=== PATIENT | female | born 1960 | race Two or more races ===

== ENCOUNTER 2024-09-21 16:26 | Inpatient (IN) | payer MEDICARE, OTHER ==
[~2024-09-21] VITALS: Ht 162.6 cm; Wt 82.2 kg
[~2024-09-21 16:26] MED LIST: BACL10TA PO; DULO60CA41 PO; FLUO-381 TOP; FLUT50SP31; FURO1TAB31 PO; HYDR200T36 PA; LEFL20TA PO; LEVO88TA4 PO; MACI1TAB2 PO; MONT-8 PO; OMEP20TA PO; PERCOT PO; SILD50TA PO
[2024-09-21] MEDS: methylPREDNISolone SOD SUCC 125 MG/2 ML VL IV ONE (17:00)
--- NOTE | 2024-09-21 17:03 | ED.PDOC ---
SOB-HPI HPI Comments 64y F who presents to the ED for chief complaint of shortness of breath. Pt states she has bee having shortness of breath with chest pain associated pain upon exertion since earlier this afternoon at approx 2 PM. Pt states she was recently diagnosed with pneumonia and states she was placed on antibiotics. Pt now in the ED, has noted 02 sat of 91% on room air and with noted BP of 95/49 and 70/40 on repeat with all other vitals in normal range. Pt otherwise denies fever, cough, chills, nausea, vomiting, diarrhea, headache or dizziness. Pt denies any other symptoms at this time. Chief Complaint: Shortness of Breath Time Seen by MD: 16:57 Reviewed notes: Nurses Notes, Medications Information Source: Patient Mode of Arrival: Wheelchair Brought in by: self Severity: Moderate Timing: Hours Duration: Since onset Context: At Rest, With Light Exertion PE Risk Factors: None History of: None Prehospital treatment: None Modifying Factors: Exertion Associated Signs and Symptoms: None Quality: Pressure Past Medical History PAST MEDICAL HISTORY: Thyroid Past Medical History (Other): pulmonary HTN Surgical History: Hysterectomy Surgical History (Other): gastric bypass, R knee surgery [employer] History: Denies all [employer] Hx Family History Family History: Unknown Social History Smoker: Cigarettes Alcohol: Denies ETOH Use Drugs: Denies Drug Use Lives In: Home Constitutional: denies: chills, diaphoresis, fatigue, fever, malaise, sweats, weakness, others EENTM: denies: blurred vision, double vision, ear bleeding, ear discharge, ear drainage, ear pain, ear ringing, eye pain, eye redness, hearing loss, mouth pain, mouth swelling, nasal discharge, nose bleeding, nose congestion, nose pain, photophobia, tearing, throat pain, throat swelling, voice changes, others Respiratory: reports: shortness of breath, SOB with excertion; denies: cough, hemoptysis, orthopnea, SOB at rest, stridor, wheezing, others Cardiovascular: reports: chest pain; denies: dizzy spells, diaphoresis, Dyspnea on exertion, edema, irregular heart beat, left arm pain, lightheadedness, palpitations, PND, syncope, others Gastrointestinal: denies: abdomen distended, abdominal pain, blood streaked bowels, constipated, diarrhea, dysphagia, difficulty swallowing, hematemesis, melena, nausea, poor appetite, poor fluid intake, rectal bleeding, rectal pain, vomiting, others Genitourinary: denies: abnormal vagina bleeding, burning, dyspareunia, dysuria, flank pain, frequency, hematuria, incontinence, pain, , vagina discharge, urgency, others Neurological: denies: dizziness, fainting, headache, left sided numbness, left sided weakness, numbness, paresthesia, pre-existing deficit, right sided numbness, right sided weakness, seizure, speech problems, tingling, tremors, weakness, others Musculoskeletal: denies: back pain, gout, joint pain, joint swelling, muscle pain, muscle stiffness, neck pain, others Integumetry: denies: bruises, change in color, change in hair/nails, dryness, laceration, lesions, lumps, rash, wounds, others Allergic/Immunocompromised: denies: Difficulty Healing, Frequent Infections, Hives, Itching, others Hematologic/Lymphatic: denies: anemia, blood clots, easy bleeding, easy bruising, swollen glands, others Endocrine: denies: excessive hunger, excessive sweating, excessive thirst, excessive urination, flushing, intolerance to cold, intolerance to heat, unexplained weight gain, unexplained weight loss, others Psychiatric: denies: anxiety, bipolar disorder, depression, hopeless, panic disorder, schizophrenia, sleepless, suicidal, others All Other Systems: Reviewed and Negative Physical Exam General Appearance: Moderate Distress HEENT: Normal ENT Inspection, Pharynx Normal, TMs Normal Neck: Full Range of Motion, Non-Tender, Normal, Normal Inspection Respiratory: Chest Non-Tender, Lungs Clear, No Accessory Muscle Use, No Respiratory Distress, Normal Breath Sounds Cardiovascular: No Edema, No JVD, No Murmur, No Gallop, Normal Peripheral Pulses, Regular Rate/Rhythm Breast Exam: Deferred Gastrointestinal: No Organomegaly, Non Tender, No Pulsatile Mass, Normal Bowel Sounds, Soft Genitalia: Deferred Pelvic: Deferred Rectal: Deferred Extremities: No calf tenderness, Normal capillary refill, Normal inspection, Normal range of motion, Non-tender, No pedal edema Musculoskeletal : Apperance: Normal Neurologic: Alert, tool liaison II-XII nml as Tested, No Motor Deficits, Normal Affect, Normal Mood, No Sensory Deficits Cerebellar Function: Normal Reflexes: Normal Skin: Dry, Normal Color, Warm Lymphatic: No Adenopathy Was a procedure done? Was a procedure done?: No Differential Dx Differential Diagnosis: Bronchitis, CHF, COPD, Pneumonia, Pulmonary Embolism, R espiratory Distress, Pharyngitis, URI Comments COVID, Influenza A and B, X-Ray, Labs, Meds, VS Vital Signs Date Time Temp Pulse Resp B/P (MAP) Pulse Ox O2 Delivery O2 Flow Rate FiO2 09/21/24 19:24 80 09/21/24 19:23 99.5 89 22 123/55 (77) 91 99.5 09/21/24 17:00 98.9 98 85 95/41 (59) 95 Lab Test 09/21/24 20:00 09/21/24 19:15 09/21/24 17:55 09/21/24 17:00 Range/Units Troponin I High Sensitivity Pending 7 6 </=34 ng/L Urine Color Light-yellow Yellow Urine Clarity Clear Clear Urine pH 7.5 5.0-9.0 Urine Specific [place] 1.008 1.001-1.035 Urine Protein Negative Negative Urine Ketones Negative Negative Urine Blood Negative Negative /uL Urine Nitrite Negative Negative Urine Bilirubin Negative Negative Urine Urobilinogen Normal Negative mg/dL Urine Leukocyte Esterase Negative Negative /uL Urine RBC 4 0 - 4 /hpf Urine WBC 2 0 - 5 /hpf Urine Squamous Epithelial Cells Few <5 /hpf Urine Amorphous Crystals Few None Seen /hpf Urine Bacteria None seen None Seen /hpf Urine Glucose Normal Normal mg/dL White Blood Count 16.9 H 4.4-10.8 10^3/uL Red Blood Count 3.47 L 4.0-5.20 10^6/uL Hemoglobin 11.3 L 12.2-16.2 g/dL Hematocrit 34.5 L 36.0-46.0 % Mean Corpuscular Volume 99.5 80.0-100.0 fL Mean Corpuscular Hemoglobin 32.7 H 28.0-32.0 pg Mean Corpuscular Hemoglobin Concent 32.9 32.0-36.0 g/dL Red Cell Distribution Width 13.5 11.8-14.3 % Platelet Count 289 140-450 10^3/uL Mean Platelet Volume 6.2 L 6.9-10.8 fL Neutrophils (%) (Auto) 90.7 H 37.0-80.0 % Lymphocytes (%) (Auto) 3.7 L 10.0-50.0 % Monocytes (%) (Auto) 5.4 0.0-12.0 % Eosinophils (%) (Auto) 0.1 0.0-7.0 % Basophils (%) (Auto) 0.1 0.0-2.0 % Neutrophils # (Auto) 15.3 H 1.6-8.6 10 ^3/uL Lymphocytes # (Auto) 0.6 0.4-5.4 10 ^3/uL Monocytes # (Auto) 0.9 0-1.3 10 ^3/uL Eosinophils # (Auto) 0 0-0.8 10 ^3/uL Basophils # (Auto) 0 0-0.2 10 ^3/uL Nucleated Red Blood Cells 0.0 % Sodium Level 139 136-145 mmol/L Potassium Level 4.3 3.5-5.1 mmol/L Chloride Level 99 98-107 mmol/L Carbon Dioxide Level 36 H 20-31 mmol/L Anion Gap 4 L 5-15 Blood Urea Nitrogen 16 9-23 mg/dL Creatinine 0.79 0.550-1.02 mg/dL Glomerular Filtration Rate Calc 85 >90 mL/min BUN/Creatinine Ratio 20.3 H 10.0-20.0 Serum Glucose 123 H 74-106 mg/dL Lactic Acid Level 1.6 0.4-2.0 mmol/L Calcium Level 9.7 8.7-10.4 mg/dL B-Type Natriuretic Peptide 152.55 0-100 pg/mL Current Medications Medications (Trade) Dose Ordered Sig/Taylor Route Start Time Stop Time Status Last Admin Methylprednisolone Sodium Succinate (Solu Medrol) 125 mg ONCE ONCE IV 09/21/24 17:00 09/21/24 17:01 DC 09/21/24 17:00 PROCEDURE(s): CXR2 - CHEST TWO VIEWS ROUTINE IMPRESSION: 1. Findings suggestive of atypical infection/ inflammatory process. Superimposed chronic interstitial disease is not excluded. The patient was being given a breathing treatment of albuterol and Atrovent The patient was given Solu-Medrol 100 mg IV push Patient's CBC shows an white blood cell count of 69 The lactic acid levels within normal limits The BNP is within limits The chemistry within limits The urine test shows no sign of any significant infection The patient's is being admitted at the time The patient was being started on antibiotics at this time. Images Reviewed?: Images reviewed and evaluated by me Time of 1ST Reevaluation: 17:30 Reevaluation 1ST: Unchanged Patient Education/Counseling: Diagnosis, Treatment, Prognosis Family Education/Counseling: No Family Present Additional Information - I reviewed the following notes from patient's past medical encounters: - The following tests were ordered, and results were reviewed by me: troponin x3, EKG x3, BNP, UA, CBC, blood culture, lactic acid, BMP,COVID, Influenza A and B - Additional information was gathered from interviewing the following independent Historian: none - I reviewed and agreed with the following test results read by other provider: radiologist - I discussed treatments and results with medical personnel and: patient Departure 1 Departure Time of Disposition: 20:16 Impression: Primary Impression: Acute respiratory failure Qualified Codes: J96.01 - Acute respiratory failure with hypoxia Additional Impressions: Pulmonary hypertension with acute cor pulmonale Pneumonia Qualified Codes: J18.9 - Pneumonia, unspecified organism Disposition: ADMITTED INPATIENT Admit to: Tele Condition: Fair Critical Care Note Critical Care Time?: Yes (35 min-critical care time only) Stability Stability form required: Yes Unstable for transfer: Telemetry monitoring (Telemetry monitoring required), ED Physician Assesment (Clinical assesment) Heart Score Heart Score: Heart Score Response (Comments) Value History Slightly Suspicious 0 EKG Normal 0 Age 45-64 1 Risk Factors No known risk factors 0 Troponin Normal limit 0 Total 1 I personally scribed for IZZY RAYMOND MD ([email or web address]) on 09/21/24 at 17:03. Electronically submitted by Corina Weeks (CURRENT). I personally scribed for IZZY RAYMOND MD ([email or web address]) on 09/21/24 at 19:44. Electronically submitted by Corina Weeks [email or web address]). IZZY RAYMOND MD Sep 21, 2024 17:03
[2024-09-21 17:21] LABS: Basophils # (auto) 0 10 ^3/uL (0-0.2); Basophils % (auto) 0.1 % (0.0-2.0); Eosinophils # (auto) 0 10 ^3/uL (0-0.8); Eosinophils % (auto) 0.1 % (0.0-7.0); Hematocrit 34.5 % (36.0-46.0); Hemoglobin 11.3 g/dL (12.2-16.2); Lymphocytes # (auto) 0.6 10 ^3/uL (0.4-5.4); Lymphocytes % (auto) 3.7 % (10.0-50.0); Mean Corpuscular Hemoglobin 32.7 pg (28.0-32.0); Mean Corpuscular Hgb Conc. 32.9 g/dL (32.0-36.0); Mean Corpuscular Volume 99.5 fL (80.0-100.0); Monocytes # (auto) 0.9 10 ^3/uL (0-1.3); Monocytes % (auto) 5.4 % (0.0-12.0); Neutrophils # (auto) 15.3 10 ^3/uL (1.6-8.6); Neutrophils % (auto) 90.7 % (37.0-80.0); Platelet Count (auto) 289 10^3/uL (140-450); Red Blood Cells 3.47 10^6/uL (4.0-5.20); Red Cell Distribution Width 13.5 % (11.8-14.3); White Blood Cell 16.9 10^3/uL (4.4-10.8)
[2024-09-21 17:30] LABS: Chloride 99 mmol/L (98-107); Potassium 4.3 mmol/L (3.5-5.1); Sodium 139 mmol/L (136-145)
[2024-09-21 17:31] LABS: Anion Gap 4 (5-15); Calcium 9.7 mg/dL (8.7-10.4)
[2024-09-21 17:36] LABS: BUN/Creatinine Ratio 20.3 (10.0-20.0); Blood Urea Nitrogen 16 mg/dL (9-23); Carbon Dioxide 36 mmol/L (20-31); Glucose 123 mg/dL (74-106)
[2024-09-21] MEDS ORDERED: FLUT1AER17 IN (17:46)
--- NOTE | 2024-09-21 18:54 | DVH ---
XY CHEST TWO VIEWS ROUTINE CLINICAL HISTORY: sob COMPARISON: None TECHNIQUE: Frontal and lateral view of the chest was obtained FINDINGS: Lines and Tubes: None Lungs: Right mid and lower lung zone alveolar opacities with diffuse bilateral interstitial opacitie s. Pleura: No effusion. No pneumothorax. Cardiomediastinal contours: Unremarkable Bones: No acute osseous abnormality. IMPRESSION: 1. Findings suggestive of atypical infection/ inflammatory process. Superimposed chronic interstitial disease is not excluded. HS:Y
[2024-09-21 19:24] LABS: Urine Bacteria None Seen /hpf (None Seen)
[2024-09-21 19:30] VITALS: PULSE 82; RESP 18; O2SAT 92
[2024-09-21 19:38] LABS: Urine Amorphous Crystal FEW /hpf (None Seen); Urine Blood Negative /uL (Negative); Urine Clarity Clear (Clear); Urine Color Light-Yellow (Yellow); Urine Protein, UAD Negative (Negative); Urine Specific Gravity 1.008 (1.001-1.035); Urine Urobilinogen Normal (Negative); Urine WBC 2 /hpf (0 - 5); Urine pH 7.5 (5.0-9.0)
[2024-09-21] MEDS: ALBUTEROL SULF 2.5 MG/0.5ML(0.5%) NEB SOLN HHN ONE (20:25)
[2024-09-21] MEDS: IPRATROPIUM BROM 0.5 MG/2.5ML INH SOL HHN ONE (20:26)
[2024-09-21] MEDS ORDERED: levoFLOXacin 500MG 100 ML IV ONE (20:30)
[2024-09-21] MEDS ORDERED: ONDANSETRON HCL 4 MG/2 ML VIAL IV PRN (20:45)
[2024-09-21] MEDS ORDERED: DOCUSATE SOD 100 MG CAP PO PRN (20:45)
[2024-09-21] MEDS ORDERED: ACETAMINOPHEN 325 MG TAB PO PRN (20:45)
[2024-09-21] MEDS: SODIUM CHLORIDE 0.9% 1,000 ML IV SCH (21:12)
[2024-09-21] MEDS: levoFLOXacin 250MG 50 ML IV ONE (21:16)
[2024-09-21] MEDS ORDERED: NITROGLYCERIN 0.4 MG SL TAB SL PRN (22:15)
[2024-09-21] MEDS ORDERED: MORPHINE SULFATE INJ 2 MG/ml SYRG IV PRN (22:15)
--- NOTE | 2024-09-21 22:17 | DVHHP2 ---
History of Present Illness Reason for Visit: Acute respiratory failure History of Present Illness The patient is a 64-year-old female with past medical history of thyroid disease and hypertension who presented to [facility] ED with complaint of shortness of breaths. Patient reports she has bee having shortness of breath with chest pain associated pain upon exertion since earlier this afternoon. She reports recently diagnosed with pneumonia and she was started on antibiotic regimen. Patient's symptoms progressively get worse with hypoxia, hypotension, weakness, getting worse that prompted this visit. Patient was seen and evaluated in the ED, laboratory data shows WBC 16.9, platelets 289, sodium 139, potassium 4.3, BUN 16, creatinine 0.79, glucose 123, troponin 7, BNP 152.55, blood pressure 120/58, heart rate 82, temperature 99.5 F, O2 saturation 92% on oxygen. Chest x-ray revealing atypical infection/inflammatory process. Patient was started on IV antibiotic regimen levofloxacin, please see medication orders section in the computer. On my assessment, patient denied chest pain, no headache, no dizziness, currently on oxygen, no nausea, no vomiting, no fever, no chills. Patient was admitted for further evaluation and medical management. Past Medical History Thyroid, HTN Past Surgical History Hysterectomy, Gastric bypass, R knee surgery Family History Reviewed, noncontributory to the management of this case. Past Social History Patient lives at home, smokes cigarettes, denies alcohol or illicit drugs abuse. Review of Systems Constitutional: Yes: Weakness; No: Fever, Chills, Sweats, Malaise, Other Eyes: No: Pain, Vision change, Conjunctivae inflammation, Eyelid inflammation, Other, Redness ENT: No: Ear pain, Ear discharge, Nose pain, Nose discharge, Nose congestion, Mouth pain, Mouth swelling, Throat pain, Throat swelling, Other Respiratory: Shortness of breath, SOB with excertion; No: Cough, Dry, Wheezing, Hemoptysis, Pleuritic Pain, Sputum, Wheezing, Other Cardiovascular: Chest Pain; No: Palpitations, Orthopnea, Paroxysmal Noc. Dyspnea, Edema, Lt Headedness, Other Gastrointestinal: No: Nausea, Vomiting, Abdominal Pain, Diarrhea, Constipation, Melena, Hematochezia, Other Genitourinary: No Dysuria, No Frequency, No Incontinence, No Hematuria, No Retention, No Other Musculoskeletal: No: other, neck pain, shoulder pain, arm pain, back pain, hand pain, leg pain, foot pain Skin: No: Rash, Lesions, Jaundice, Bruising, Other Neurological: No: Weakness, Numbness, Incoordination, Change in speech, Confusion, Seizures, Other Allergies: Coded Allergies: NO KNOWN ALLERGIES (Unverified , 09/21/24) Medications Current Medications Medications Dose Ordered Sig/Taylor Route Start Time Stop Time Status Last Admin Dose Admin Albuterol 2.5 mg Q4HPRN PRN NEB 09/21/24 20:30 Ipratropium Media 0.5 mg Q4HPRN PRN NEB 09/21/24 20:30 Famotidine 20 mg Q12HR IV 09/21/24 22:00 Methylprednisolone Sodium Succinate 40 mg Q8HR IV 09/21/24 22:00 Levofloxacin/ Dextrose 100 ml @ 100 mls/hr DAILY@2000 IV 09/22/24 20:00 Sodium Chloride 1,000 ml @ 60 mls/hr [id number] IV 09/21/24 20:45 09/21/24 21:12 60 MLS/HR Acetaminophen/ Hydrocodone Bitart 1 tab Q4HP PRN PO 09/21/24 20:45 Ondansetron HCl 4 mg Q4HP PRN IV 09/21/24 20:45 Docusate Sodium 100 mg BIDPRN PRN PO 09/21/24 20:45 Acetaminophen 650 mg Q6HP PRN PO 09/21/24 20:45 Levothyroxine Sodium 88 mcg QAM@0600 PO 09/22/24 06:00 Exam Vital Signs Vital Signs Date Time Temp Pulse Resp B/P (MAP) Pulse Ox O2 Delivery O2 Flow Rate FiO2 09/21/24 20:27 20 90 Nasal Cannula* 5 40 09/21/24 19:30 99.5 82 120/58 (78) 99.5 General Appearance: Alert, Oriented X3, Cooperative, No acute distress HEENT: Atraumatic, PERRLA, EOMI, Mucous membr. moist/pink Respiratory: Clear to auscultation, Normal air movement Cardiovascular: Regular rate, Normal S1, Normal S2, No murmurs Abdominal: Normal bowel sounds, Soft, No tenderness, No hepatospenomegaly, No masses Extremities: No clubbing, No cyanosis, No edema, Normal pulses, No tenderness/swelling Skin: No rashes, No breakdown, No significant lesion Neuro: Normal speech, Normal tone, Sensation intact, Cranial nerves 3-12 NL, Reflexes 2+, Other (Generalized weakness) Psych/Mental Status: Mental status NL, Mood NL Labs/Xrays Labs Test 09/21/24 20:30 09/21/24 20:00 09/21/24 19:15 09/21/24 17:00 Range/Units Troponin I High Sensitivity 7 </=34 ng/L Urine Color Light-yellow Yellow Urine Clarity Clear Clear Urine pH 7.5 5.0-9.0 Urine Specific [place] 1.008 1.001-1.035 Urine Protein Negative Negative Urine Ketones Negative Negative Urine Blood Negative Negative /uL Urine Nitrite Negative Negative Urine Bilirubin Negative Negative Urine Urobilinogen Normal Negative mg/dL Urine Leukocyte Esterase Negative Negative /uL Urine RBC 4 0 - 4 /hpf Urine WBC 2 0 - 5 /hpf Urine Squamous Epithelial Cells Few <5 /hpf Urine Amorphous Crystals Few None Seen /hpf Urine Bacteria None seen None Seen /hpf Urine Glucose Normal Normal mg/dL White Blood Count 16.9 H 4.4-10.8 10^3/uL Red Blood Count 3.47 L 4.0-5.20 10^6/uL Hemoglobin 11.3 L 12.2-16.2 g/dL Hematocrit 34.5 L 36.0-46.0 % Mean Corpuscular Volume 99.5 80.0-100.0 fL Mean Corpuscular Hemoglobin 32.7 H 28.0-32.0 pg Mean Corpuscular Hemoglobin Concent 32.9 32.0-36.0 g/dL Red Cell Distribution Width 13.5 11.8-14.3 % Platelet Count 289 140-450 10^3/uL Mean Platelet Volume 6.2 L 6.9-10.8 fL Neutrophils (%) (Auto) 90.7 H 37.0-80.0 % Lymphocytes (%) (Auto) 3.7 L 10.0-50.0 % Monocytes (%) (Auto) 5.4 0.0-12.0 % Eosinophils (%) (Auto) 0.1 0.0-7.0 % Basophils (%) (Auto) 0.1 0.0-2.0 % Neutrophils # (Auto) 15.3 H 1.6-8.6 10 ^3/uL Lymphocytes # (Auto) 0.6 0.4-5.4 10 ^3/uL Monocytes # (Auto) 0.9 0-1.3 10 ^3/uL Eosinophils # (Auto) 0 0-0.8 10 ^3/uL Basophils # (Auto) 0 0-0.2 10 ^3/uL Nucleated Red Blood Cells 0.0 % Sodium Level 139 136-145 mmol/L Potassium Level 4.3 3.5-5.1 mmol/L Chloride Level 99 98-107 mmol/L Carbon Dioxide Level 36 H 20-31 mmol/L Anion Gap 4 L 5-15 Blood Urea Nitrogen 16 9-23 mg/dL Creatinine 0.79 0.550-1.02 mg/dL Glomerular Filtration Rate Calc 85 >90 mL/min BUN/Creatinine Ratio 20.3 H 10.0-20.0 Serum Glucose 123 H 74-106 mg/dL Lactic Acid Level 1.6 0.4-2.0 mmol/L Calcium Level 9.7 8.7-10.4 mg/dL B-Type Natriuretic Peptide 152.55 0-100 pg/mL PATIENT: CHUCK PÉREZACCT: [id number] UNIT: [id number] : 1960 LOC: ER ROOM / BED: / AGE / SEX: 64 / F ADM STATUS: REG ER SERVICE 47 ORDERING PHYSICIAN: IZZY RAYMOND MD PROCEDURE(s): CXR2 - CHEST TWO VIEWS ROUTINE REASON: sob ORDER NUMBER(s): [id number], ACCESSION NUMBER(s): [id number] XY CHEST TWO VIEWS ROUTINE CLINICAL HISTORY: sob COMPARISON: None TECHNIQUE: Frontal and lateral view of the chest was obtained FINDINGS: Lines and Tubes: None Lungs: Right mid and lower lung zone alveolar opacities with diffuse bilateral interstitial opacities. Pleura: No effusion. No pneumothorax. Cardiomediastinal contours: Unremarkable Bones: No acute osseous abnormality. IMPRESSION: 1. Findings suggestive of atypical infection/inflammatory process. Superimposed chronic interstitial disease is not excluded. Assessment/Plan Assessment/Plan Acute respiratory failure Leukocytosis, unspecified Generalized weakness Acute respiratory failure with hypoxia Pulmonary hypertension with acute cor pulmonale Pneumonia, unspecified organism Plan 1. Admit to telemetry unit 2. Breathing treatment 3. Pain control management 4. IV antibiotic management 5. Management of fluids and electrolytes 6. Consultation for pulmonology 7. Diagnostic test chest x-ray 8. DVT prophylaxis-on SCDs 9. Repeat labs CBC, CMP in a.m. 10. Home medication reviewed and reconciled 11. Continue with current medical management 12. Treatment plan discussed with patient and RN. Patient verbalized understanding. Plan discussed with: Patient, Other (RN) My Orders Orders - SAUL DEUTSCH DNP Procedure Category Date Status Time Albuterol Medneb PHA 09/21/24 In Process (Ventolin Medneb) 20:30 Ipratropium Medneb PHA 09/21/24 In Process (Atrovent Medneb) 20:30 Famotidine Injection PHA 09/21/24 In Process (Pepcid Injection) 22:00 Methylprednisolone PHA 09/21/24 In Process Sod Succ (Solu Medrol 22:00 Levofloxacin 500mg PHA 09/22/24 In Process (Levaquin 500mg/ 100m 20:00 Allergies JACQUELYN 09/21/24 In Process 20:43 Code Status CODE 09/21/24 Transmitted 20:43 Sodium Chloride 0.9% PHA 09/21/24 In Process 20:45 Oxygen Per Hour RT 09/21/24 Transmitted 20:43 Hydrocodone-Acet PHA 09/21/24 In Process 5/325mg Tab ([place] 20:45 Ondansetron Hcl PHA 09/21/24 In Process (Zofran) 20:45 Docusate Sodium PHA 09/21/24 In Process Capsule (Colace 20:45 Complete Blood Count LAB 09/22/24 Verified 04:00 Comprehensive LAB 09/22/24 Verified Metabolic Panel 04:00 Cardiac DIET 09/22/24 Transmitted Diet-2gna,Lofat,Lochol Breakfast Condition: Serious JACQUELYN 09/21/24 In Process 20:43 Acetaminophen Tablet PHA 09/21/24 In Process (Tylenol Tablet) 20:45 Bedrest With Bathroom JACQUELYN 09/21/24 In Process Privileg 20:43 Sequential JACQUELYN 09/21/24 In Process Compression Device Thyroid Stimulating LAB 09/21/24 In Process Hormone 21:28 Levothyroxine Tablet PHA 09/22/24 In Process (Synthroid Tablet) 06:00 Admit ADMIT 09/21/24 Verified 22:15 Nitroglycerin PHA 09/21/24 Verified Sublingual (Ntrostat 22:15 Morphine Sulfate PHA 09/21/24 Verified Injection 22:15 Notify Of Changes [facility] 09/21/24 Verified From Base 22:15 Gate Cutter For [facility] 09/21/24 Verified 24 Hours 22:15 Emergency Dysrhythmia [facility] 09/21/24 Verified Protocol 22:15 Rhythm Strips Once [facility] 09/21/24 Verified Every Shift 22:15 Oxygen By Nasal RT 09/21/24 Verified Cannula 22:15 Problem List: (1) Acute respiratory failure (2) Leukocytosis, unspecified (3) Acute respiratory failure with hypoxia (4) Pneumonia, unspecified organism (5) Generalized weakness (6) Pulmonary hypertension with acute cor pulmonale Date of Service: Sep 21, 2024 Billing Provider: SAUL DEUTSCH DNP Common Visit Codes: [id number] INP/OBS CARE (HIGH) SAUL DEUTSCH DNP Sep 21, 2024 22:17
[2024-09-21 22:27] LABS: COVID19 ANTIGEN SOFIA FIA NEGATIVE (NEGATIVE); Rapid Influenza A Negative (Negative); Rapid Influenza B Negative (Negative)
[2024-09-21] MEDS: FAMOTIDINE (10MG/ML) 2ML VL IV SCH (22:45)
[2024-09-21] MEDS: methylPREDNISolone SOD SUCC 40 MG/ML VL IV SCH (22:46)
[2024-09-21 22:52] VITALS: BP 120/58; PULSE 84; RESP 20; TEMP 98.1; O2SAT 90
[2024-09-21 22:56] VITALS: O2SAT 90
[2024-09-22] VITALS (12 sets, daily range): BP systolic 108–144; BP diastolic 52–64; PULSE 66–109; RESP 18–20; TEMP 97.9–98.4; O2SAT 92–98
[2024-09-22 01:48] LABS: Amphetamine Screen, Urine Neg (NEGATIVE); Barbiturate Scree,Urine Neg (NEGATIVE); Benzodiazephine Screen, Urine Neg (NEGATIVE); Cannabinoid Screen, Urine Neg (NEGATIVE); Cocaine Screen, Urine Neg (NEGATIVE); Opiate Scree,Urine Pos (NEGATIVE); Phencyclidine Screen, Urine Neg (NEGATIVE)
[2024-09-22] MEDS ORDERED: ASPI-543 PO (01:53)
[2024-09-22] MEDS ORDERED: PAR20T PO (01:53)
[2024-09-22] MEDS ORDERED: MORP1TAB12 PO (01:53)
[2024-09-22] MEDS ORDERED: OXCA150T3 PO (01:53)
[2024-09-22] MEDS ORDERED: POTA-180 PO (01:53)
[2024-09-22] MEDS ORDERED: FERR1TAB31 PO (01:53)
[2024-09-22] MEDS ORDERED: PREG100C PO (01:53)
--- NOTE | 2024-09-22 03:45 | ECG ---
[facility] Test Date: 2024-09-21 Test Time: 19:24:12 Pat Name: CHUCK IRVINGKRISTALepartment: ER [facility] F Engagement Lead: ER : 1960 Requested By: IZZY RAYMOND Order Number: [id number] Reading MD: Jt Ribeiro Measurements Intervals [place] Rate: 80 P: 36 AL: 147 QRS: 7 QRSD: 82 T: 79 QT: 347 QTc: 401 Interpretive Statements Sinus rhythm Abnormal R-wave progression, early transition Consider anterior infarct Electronically Signed On 09-22-2024 12:51:14 PST by Jt Ribeiro Please click the below link to view image of tracing.
[2024-09-22] MEDS: LEVOTHYROXINE SODIUM 88 MCG TAB PO SCH (04:33)
[2024-09-22] MEDS: HYDROcodone-ACET 5/325MG TAB PO PRN (04:34)
[2024-09-22 08:00] LABS: Alanine Aminotransferase 16 U/L (7-40); Albumin 3.7 g/dL (3.2-4.8); Alkaline Phosphatase 59 U/L (46-116); Anion Gap 3 (5-15); Aspartate Aminotransferase 26 U/L (13-40); Blood Urea Nitrogen 13 mg/dL (9-23); Chloride 105 mmol/L (98-107); Potassium 4.2 mmol/L (3.5-5.1); Sodium 140 mmol/L (136-145); Total Protein 5.8 g/dL (5.7-8.2)
[2024-09-22 08:06] LABS: Carbon Dioxide 32 mmol/L (20-31); Glucose 162 mg/dL (74-106)
[2024-09-22 08:13] LABS: Hematocrit 31.3 % (36.0-46.0); Hemoglobin 10.2 g/dL (12.2-16.2); Mean Corpuscular Hemoglobin 32.8 pg (28.0-32.0); Mean Corpuscular Hgb Conc. 32.6 g/dL (32.0-36.0); Mean Corpuscular Volume 100.5 fL (80.0-100.0); Platelet Count (auto) 243 10^3/uL (140-450); Red Blood Cells 3.12 10^6/uL (4.0-5.20); White Blood Cell 20.8 10^3/uL (4.4-10.8)
[2024-09-22 08:24] LABS: Basophils % (manual) 0 (0.0-2.0); Blast Cells 0; Eosinophils % (manual) 0 (0-7); Metamyelocytes % 0; Myelocytes % 0; Promyelocytes % 0; Reactive Lymphocytes 0
[2024-09-22 08:46] LABS: Bilirubin, Total 0.2 mg/dL (0.2-1.0)
[2024-09-22 09:24] LABS: Band Neutrophils % (manual) 37; Lymphocytes % (manual) 3 (10.0-50.0); Monocytes % (manual) 3 (0-12)
[2024-09-22 09:25] LABS: Macrocytosis Slight; Platelet Estimate Adequate
[2024-09-22] MEDS ORDERED: hydrOXYzine 25 MG TAB or CAP PO PRN (13:15)
--- NOTE | 2024-09-22 13:18 | DVHPN2 ---
Assessment/Plan Assessment/Plan Progress note Subjective 64 F with PAH admitted for COPDe. On home O2 4LPM. Objective Physical exam Alert, oriented x3 PERRLA No JVD Bilateral crackles S1-S2 regular rate and rhythm Abdomen soft nontender, no organomegaly Moving all four extremities No lower extremity edema Lab WBC 20 Hb 11 MCV 100 Left shift Bicarb 32 Imaging CXR interstitial opacity Assessment and plan Acute on chronic hypoxic respiratory failure COPD group E with exacerbation Complex pneumonia, fungal? cannot rule out ILD pulmonary arterial hypertension chronic pain right heart failure hypothyroidism maintain spo2 >94% resume home meds, sildenafil, obsumit, lasix, paroxetine, levothyroxine albuterol ipatropium nebs cover with iv levofloxacin sputum culture high res chest CT resume pain management, CURES reviewed Replete electrolytes Diet regular DVT prophylaxis ambulatory Plan discussed with: Patient My Orders Orders - MARY KELLY MD Procedure Category Date Status Time Oxycodone W/ Acet PHA 09/22/24 Logged 5/325mg Tab (Percocet 13:00 Morphine Extended PHA 09/22/24 Logged Release Tab (Oramorph 14:00 Baclofen Tablet PHA 09/22/24 Logged (Liorisal Tablet) 14:00 Pregabalin Capsule PHA 09/22/24 Logged (Lyrica Capsule) 14:00 Paroxetine Tablet PHA 09/23/24 Logged (Paxil Tablet) 10:00 Hydroxyzine Oral PHA 09/22/24 Logged (Vistaril Oral) 13:15 Montelukast Tablet PHA 09/22/24 Logged (Singulair Tablet) 22:00 Pantoprazole Tablet PHA 09/23/24 Logged (Protonix Tablet) 06:00 Sildenafil Citrate PHA 09/22/24 Logged (Revatio) 14:00 Furosemide Tablet PHA 09/23/24 Logged (Lasix Tablet) 10:00 Patients Own PHA 09/23/24 Logged Medication 10:00 Hydroxychloroquine PHA 09/23/24 Logged Tablet (Plaquenil Tab 10:00 Patients Own PHA 09/23/24 Logged Medication 10:00 Regular Diet DIET 09/22/24 Transmitted Lunch * Cardiology Consult CONS 09/22/24 Transmitted 13:08 Date of Service: Sep 22, 2024 Billing Provider: MARY KELLY MD Common Visit Codes: [id number] INP/OBS CARE(HIGH) MARY KELLY MD Sep 22, 2024 13:18
[2024-09-22] MEDS: BACLOFEN 10 MG TAB PO SCH (14:03)
[2024-09-22] MEDS: PREGABALIN 25 MG CAP PO SCH (14:03)
[2024-09-22] MEDS: SILDENAFIL CITRATE 20 MG TAB PO SCH (14:04)
[2024-09-22] MEDS: MORPHINE SULF 15mg ER tab PO SCH (14:04)
--- NOTE | 2024-09-22 15:25 | DVHPN2 ---
Progress Note - Dictate Date Seen: Sep 21, 2024 Medical Necessity Reason Pt with a Central, PICC or Fol: No Subjective PT WITH SOB CXR SHOWS RIGHT LOWER LOBE INFILTRATE VS FIBROSIS HX OF PAH HYPOTHYROIDISM PT HAS UNDER GONE 3 ROUNDS OF ABX WITH INHALERS AND STEROID vital signs Vital Sign Date Time Temp Pulse Resp B/P (MAP) Pulse Ox O2 Delivery O2 Flow Rate FiO2 09/22/24 13:00 98.4 69 18 144/52 (82) 95 98.4 09/22/24 10:00 Nasal Cannula 5.0 09/22/24 10:00 40 Total Intake and Output 09/21/24 09/21/24 09/22/24 15:00 23:00 07:00 Intake Total 50 ml 200 ml Output Total 275 ml Balance 50 ml -75 ml medications Current Medications Medications Dose Ordered Sig/Taylor Route Start Time Stop Time Status Last Admin Dose Admin Albuterol 2.5 mg Q4HPRN PRN NEB 09/21/24 20:30 Ipratropium [place] 0.5 mg Q4HPRN PRN NEB 09/21/24 20:30 Methylprednisolone Sodium Succinate 40 mg Q8HR IV 09/21/24 22:00 09/22/24 14:02 40 MG Levofloxacin 50 ml @ 50 mls/hr DAILY@2100,2200 IV 09/22/24 21:00 Sodium Chloride 1,000 ml @ 60 mls/hr [id number] IV 09/21/24 20:45 09/21/24 21:12 60 MLS/HR Acetaminophen 650 mg Q6HP PRN PO 09/21/24 20:45 Levothyroxine Sodium 88 mcg QAM@0600 PO 09/22/24 06:00 09/22/24 04:33 88 MCG Oxycodone/ Acetaminophen 2 tab Q6HP PRN PO 09/22/24 13:00 Morphine Sulfate 15 mg Q8HR PO 09/22/24 14:00 09/22/24 14:04 15 MG Baclofen 10 mg Q8HR PO 09/22/24 14:00 09/22/24 14:03 10 MG Pregabalin 100 mg TID PO 09/22/24 14:00 09/22/24 14:03 100 MG Paroxetine HCl 40 mg DAILY PO 09/23/24 10:00 Hydroxyzine Pamoate 50 mg Q6HP PRN PO 09/22/24 13:15 Montelukast Sodium 10 mg HS PO 09/22/24 22:00 Pantoprazole Sodium 40 mg DAILY@0600 PO 09/23/24 06:00 Sildenafil Citrate 20 mg TID@08,14,20 PO 09/22/24 14:00 09/22/24 14:04 20 MG Furosemide 40 mg DAILY PO 09/23/24 10:00 Patient Own Medication 1 DAILY PO 09/23/24 10:00 Hydroxychloroquine Sulfate 200 mg DAILY PO 09/23/24 10:00 Patient Own Medication 1 DAILY PO 09/23/24 10:00 Aspirin 81 mg DAILY PO 09/23/24 10:00 Paroxetine HCl 10 mg DAILY PO 09/23/24 10:00 laboratory and microbiology Laboratory Tests 09/22/24 07:18 Test 09/22/24 07:18 Range/Units Serum Glucose 162 H 74-106 mg/dL Problem List RIGHT LOWER LOBE INFILTRATE VS FIBROSIS HX OF PAH HYPOTHYROIDISM PT HAS UNDER GONE 3 ROUNDS OF ABX WITH INHALERS AND STEROID LEUKOCYTOSIS Assessment/Plan INHALERS BROAD SPECTRUM ABX DC LEVAQUIN PT HAS BEEN TREATED WITH LEVAQUIN AND WITH DOXYCYCLINE MEROPENAM AND DIFLUCAN CONSIDER BRONCHOSCOPY WITH BIOPSY Plan discussed with: Patient ANALY CORTEZ MD Sep 22, 2024 15:25
--- NOTE | 2024-09-22 15:25 | DVHPN2 ---
Progress Note - Dictate Date Seen: Sep 22, 2024 Medical Necessity Reason Pt with a Central, PICC or Fol: No Subjective PT WITH SOB CXR SHOWS RIGHT LOWER LOBE INFILTRATE VS FIBROSIS HX OF PAH HYPOTHYROIDISM PT HAS UNDER GONE 3 ROUNDS OF ABX WITH INHALERS AND STEROID vital signs Vital Sign Date Time Temp Pulse Resp B/P (MAP) Pulse Ox O2 Delivery O2 Flow Rate FiO2 09/22/24 13:00 98.4 69 18 144/52 (82) 95 98.4 09/22/24 10:00 Nasal Cannula 5.0 09/22/24 10:00 40 Total Intake and Output 09/21/24 09/21/24 09/22/24 15:00 23:00 07:00 Intake Total 50 ml 200 ml Output Total 275 ml Balance 50 ml -75 ml medications Current Medications Medications Dose Ordered Sig/Taylor Route Start Time Stop Time Status Last Admin Dose Admin Albuterol 2.5 mg Q4HPRN PRN NEB 09/21/24 20:30 Ipratropium [place] 0.5 mg Q4HPRN PRN NEB 09/21/24 20:30 Methylprednisolone Sodium Succinate 40 mg Q8HR IV 09/21/24 22:00 09/22/24 14:02 40 MG Levofloxacin 50 ml @ 50 mls/hr DAILY@2100,2200 IV 09/22/24 21:00 Sodium Chloride 1,000 ml @ 60 mls/hr [id number] IV 09/21/24 20:45 09/21/24 21:12 60 MLS/HR Acetaminophen 650 mg Q6HP PRN PO 09/21/24 20:45 Levothyroxine Sodium 88 mcg QAM@0600 PO 09/22/24 06:00 09/22/24 04:33 88 MCG Oxycodone/ Acetaminophen 2 tab Q6HP PRN PO 09/22/24 13:00 Morphine Sulfate 15 mg Q8HR PO 09/22/24 14:00 09/22/24 14:04 15 MG Baclofen 10 mg Q8HR PO 09/22/24 14:00 09/22/24 14:03 10 MG Pregabalin 100 mg TID PO 09/22/24 14:00 09/22/24 14:03 100 MG Paroxetine HCl 40 mg DAILY PO 09/23/24 10:00 Hydroxyzine Pamoate 50 mg Q6HP PRN PO 09/22/24 13:15 Montelukast Sodium 10 mg HS PO 09/22/24 22:00 Pantoprazole Sodium 40 mg DAILY@0600 PO 09/23/24 06:00 Sildenafil Citrate 20 mg TID@08,14,20 PO 09/22/24 14:00 09/22/24 14:04 20 MG Furosemide 40 mg DAILY PO 09/23/24 10:00 Patient Own Medication 1 DAILY PO 09/23/24 10:00 Hydroxychloroquine Sulfate 200 mg DAILY PO 09/23/24 10:00 Patient Own Medication 1 DAILY PO 09/23/24 10:00 Aspirin 81 mg DAILY PO 09/23/24 10:00 Paroxetine HCl 10 mg DAILY PO 09/23/24 10:00 laboratory and microbiology Laboratory Tests 09/22/24 07:18 Test 09/22/24 07:18 Range/Units Serum Glucose 162 H 74-106 mg/dL Problem List RIGHT LOWER LOBE INFILTRATE VS FIBROSIS HX OF PAH HYPOTHYROIDISM PT HAS UNDER GONE 3 ROUNDS OF ABX WITH INHALERS AND STEROID LEUKOCYTOSIS Assessment/Plan INHALERS BROAD SPECTRUM ABX DC LEVAQUIN PT HAS BEEN TREATED WITH LEVAQUIN AND WITH DOXYCYCLINE MEROPENAM AND DIFLUCAN CONSIDER BRONCHOSCOPY WITH BIOPSY Plan discussed with: Patient ANALY CORTEZ MD Sep 22, 2024 15:25
--- NOTE | 2024-09-22 16:13 | DVHINCON2 ---
Date of service: Sep 22, [address] Mcdonough Reason for Consultation Pulmonary hypertension History of Present Illness 64-year-old woman history of thyroid disease, hypertension who presented with shortness of breath. She has been having shortness of breath and chest pain with exertion. It resolves with rest. She recently was diagnosed with a pneumonia and was given antibiotic regimen. Her symptoms progressively got worse. She had hypoxia. She had generalized weakness. Patient was currently started on IV antibiotics. Chest x-ray was notable for atypical opacities. No fever or chills. No nausea or vomiting. No dizziness. No headaches. Pulmonary consultation is called due to pulmonary hypertension evaluation. Review of systems: 14 point review of systems is negative unless otherwise noted above. Past medical history: Thyroid disease, hypertension Past surgical history: Hysterectomy, gastric bypass, right knee surgery Medications: Reviewed Allergies: No known drug allergies. Family history: No family history of premature CAD. No family history of lung disease. Social history: Smokes cigarettes. No alcohol or illicit drug use. Lives at home. Family History: Hypertension G8 MOTHER, Onset:50's - 60 G8 FATHER, Onset:60 years & older Allergies: Coded Allergies: NO KNOWN ALLERGIES (Unverified , 09/21/24) Home Meds Reported Medications Aspirin (Aspir-Low) 81 Mg Tab, 81 MG PO DAILY for 30 Days, MG 09/22/24 Ferrous Gluconate (IRON) 27 Mg Tab, 27 MG PO, TAB 09/22/24 Oxcarbazepine (Trileptal) 150 Mg Tab, 150 MG PO, TAB 09/22/24 Potassium Chloride (Potassium Chloride ER) 20 Meq Tab, 20 MEQ PO, TAB 09/22/24 Furosemide (Lasix) 40 Mg Tab, 40 MG PO, TAB 09/22/24 Sildenafil Citrate (Viagra) 50 Mg Tab, 1 TAB PO UD, #6 TAB 5 Refills 09/22/24 Pregabalin (Lyrica) 100 Mg Cap, 1 CAP PO TID, #90 CAP 2 Refills 09/22/24 Levothyroxine Sodium (Levothyroxine Sodium) 88 Mcg Tab, 88 MCG PO QAM for 30 Days, MCG 09/22/24 Morphine Sulfate (Morphine Sulfate Cr) 15 Mg Tab, 1 TAB PO BID, #60 TAB 09/22/24 Oxycodone W/ Acetaminophen (Percocet 5/325MG) 1 Tab Tb, TAB PO QID, #120 TAB 09/22/24 Paroxetine (PAXIL TABLET) 20 Mg Tb, 20 MG PO BID for 30 Days 09/22/24 Current Medications Current Medications Medications (Trade) Dose Ordered Sig/Taylor Route PRN Reason Start Time Stop Time Status Last Admin Albuterol (Ventolin Medneb) 2.5 mg Q4HPRN PRN NEB SHORTNESS OF BREATH 09/21/24 20:30 Ipratropium [place] (Atrovent Medneb) 0.5 mg Q4HPRN PRN NEB SHORTNESS OF BREATH 09/21/24 20:30 Famotidine (Pepcid Injection) 20 mg Q12HR IV 09/21/24 22:00 09/22/24 12:58 DC 09/22/24 09:11 Methylprednisolone Sodium Succinate (Solu Medrol) 40 mg Q8HR IV 09/21/24 22:00 09/22/24 14:02 Levofloxacin 50 ml @ 50 mls/hr DAILY@2100,2200 IV 09/22/24 21:00 09/22/24 15:21 DC Sodium Chloride 1,000 ml @ 60 mls/hr [id number] IV 09/21/24 20:45 09/21/24 21:12 Acetaminophen/ Hydrocodone Bitart ([place] 5/325MG Tab) 1 tab Q4HP PRN PO MODERATE PAIN (4-6 PAIN SCALE) 09/21/24 20:45 09/22/24 12:58 DC 09/22/24 09:11 Ondansetron HCl (Zofran) 4 mg Q4HP PRN IV NAUSEA / VOMITING 09/21/24 20:45 09/22/24 12:58 DC Docusate Sodium (Colace Capsule) 100 mg BIDPRN PRN PO FOR CONSTIPATION 09/21/24 20:45 09/22/24 12:58 DC Acetaminophen (Tylenol Tablet) 650 mg Q6HP PRN PO PAIN SCALE 1-3 OR TEMP>100.4 09/21/24 20:45 Levothyroxine Sodium (Synthroid Tablet) 88 mcg QAM@0600 PO 09/22/24 06:00 09/22/24 04:33 Nitroglycerin (Ntrostat Sublingual) 0.4 mg Q5MINP PRN SL FOR CHEST PAIN 09/21/24 22:15 09/22/24 12:58 DC Morphine Sulfate 2 mg Q30M PRN IV FOR CHEST PAIN 09/21/24 22:15 09/22/24 12:58 DC Oxycodone/ Acetaminophen (Percocet 5/ 325MG Tablet) 2 tab Q6HP PRN PO BREAKTHROUGH PAIN 09/22/24 13:00 Morphine Sulfate (Oramorph Sustained Release Tab) 15 mg Q8HR PO 09/22/24 14:00 09/22/24 14:04 Baclofen (Liorisal Tablet) 10 mg Q8HR PO 09/22/24 14:00 09/22/24 14:03 Pregabalin (Lyrica Capsule) 100 mg TID PO 09/22/24 14:00 09/22/24 14:03 Paroxetine HCl (Paxil Tablet) 40 mg DAILY PO 09/23/24 10:00 Hydroxyzine Pamoate (Vistaril Oral) 50 mg Q6HP PRN PO FOR ITCHING 09/22/24 13:15 Montelukast Sodium (Singulair Tablet) 10 mg HS PO 09/22/24 22:00 Pantoprazole Sodium (Protonix Tablet) 40 mg DAILY@0600 PO 09/23/24 06:00 Sildenafil Citrate (Revatio) 20 mg TID@08,14,20 PO 09/22/24 14:00 09/22/24 14:04 Furosemide (Lasix Tablet) 40 mg DAILY PO 09/23/24 10:00 Patient Own Medication 1 DAILY PO 09/23/24 10:00 Hydroxychloroquine Sulfate (Plaquenil Tablet) 200 mg DAILY PO 09/23/24 10:00 Patient Own Medication 1 DAILY PO 09/23/24 10:00 Aspirin 81 mg DAILY PO 09/23/24 10:00 Paroxetine HCl (Paxil Tablet) 10 mg DAILY PO 09/23/24 10:00 Fluconazole 100 ml @ 100 mls/hr 10,11 IV 09/23/24 10:00 UNV Patient Own Medication 1 g BID IV 09/22/24 22:00 UNV Meropenem 50 ml @ 17 mls/hr Q12HR IV 09/22/24 22:00 UNV Vital Signs Vital Signs Date Time Temp Pulse Resp B/P (MAP) Pulse Ox O2 Delivery O2 Flow Rate FiO2 12/13/24 13:00 98.4 69 18 144/52 (82) 95 98.4 09/22/24 10:00 Nasal Cannula 5.0 09/22/24 10:00 40 Physical Exam Gen.: Patient lying in bed in no apparent distress. On supplemental oxygen. Head: Normocephalic, atraumatic Eyes: EOMI/PERRLA. Ears: Normal hearing. Normal anatomy. Neck/trachea: Trachea midline, supple. Nose: Normal external anatomy. Mouth: Moist mucous membranes. Chest: Fair air entry bilaterally. No wheezing or rhonchi. Cardio vascular: Positive S1, positive S2. Regular rate and rhythm. Abdomen: Positive bowel sounds in all 4 quadrants. Soft, non-tender, non- distended. : Deferred. Rectal: Deferred Skin: Warm, dry. Extremities: 2+ radial pulses bilaterally. No lower extremity edema. Neuro: Awake, alert, oriented x3. No gross motor or sensory deficits. Cranial nerves II through XII intact. Gait not assessed. Labs/Diagnostic Data Labs Test 09/22/24 07:18 09/21/24 20:30 09/21/24 20:00 09/21/24 19:15 Range/Units White Blood Count 20.8 H 4.4-10.8 10^3/uL Red Blood Count 3.12 L 4.0-5.20 10^6/uL Hemoglobin 10.2 L 12.2-16.2 g/dL Hematocrit 31.3 L 36.0-46.0 % Mean Corpuscular Volume 100.5 H 80.0-100.0 fL Mean Corpuscular Hemoglobin 32.8 H 28.0-32.0 pg Mean Corpuscular Hemoglobin Concent 32.6 32.0-36.0 g/dL Red Cell Distribution Width 14.0 11.8-14.3 % Platelet Count 243 140-450 10^3/uL Mean Platelet Volume 6.5 L 6.9-10.8 fL Neutrophils (%) (Auto) 37.0-80.0 % Lymphocytes (%) (Auto) 10.0-50.0 % Monocytes (%) (Auto) 0.0-12.0 % Basophils (%) (Auto) 0.0-2.0 % Neutrophils # (Auto) 1.6-8.6 10 ^3/uL Lymphocytes # (Auto) 0.4-5.4 10 ^3/uL Monocytes # (Auto) 0-1.3 10 ^3/uL Differential Total Cells Counted 100.0 100 Neutrophils % (Manual) 57 37.0-80.0 Band Neutrophils % (Manual) 37 Lymphocytes % (Manual) 3 L 10.0-50.0 Monocytes % (Manual) 3 0-12 Eosinophils % (Manual) 0 0-7 Basophils % (Manual) 0 0.0-2.0 Metamyelocytes % (manual) 0 Myelocytes % (Manual) 0 Promyelocytes % (Manual) 0 Blast Cells % (Manual) 0 Reactive Lymphocytes 0 Platelet Estimate Adequate Macrocytosis Slight Sodium Level 140 136-145 mmol/L Potassium Level 4.2 3.5-5.1 mmol/L Chloride Level 105 98-107 mmol/L Carbon Dioxide Level 32 H 20-31 mmol/L Anion Gap 3 L 5-15 Blood Urea Nitrogen 13 9-23 mg/dL Creatinine 0.62 0.550-1.02 mg/dL Glomerular Filtration Rate Calc 101 >90 mL/min BUN/Creatinine Ratio 21.0 H 10.0-20.0 Serum Glucose 162 H 74-106 mg/dL Calcium Level 10.0 8.7-10.4 mg/dL Total Bilirubin 0.2 0.2-1.0 mg/dL Aspartate Amino Transferase (AST) 26 13-40 U/L Alanine Aminotransferase (ALT) 16 7-40 U/L Alkaline Phosphatase 59 46-116 U/L Total Protein 5.8 5.7-8.2 g/dL Albumin 3.7 3.2-4.8 g/dL Influenza Type A Antigen Negative Negative Influenza Type B Antigen Negative Negative SARS-CoV-2 Antigen (Rapid) Negative NEGATIVE Troponin I High Sensitivity 7 </=34 ng/L Thyroid Stimulating Hormone (TSH) 1.84 0.55-4.78 uIU/mL Urine Color Light-yellow Yellow Urine Clarity Clear Clear Urine pH 7.5 5.0-9.0 Urine Specific [place] 1.008 1.001-1.035 Urine Protein Negative Negative Urine Ketones Negative Negative Urine Blood Negative Negative /uL Urine Nitrite Negative Negative Urine Bilirubin Negative Negative Urine Urobilinogen Normal Negative mg/dL Urine Leukocyte Esterase Negative Negative /uL Urine RBC 4 0 - 4 /hpf Urine WBC 2 0 - 5 /hpf Urine Squamous Epithelial Cells Few <5 /hpf Urine Amorphous Crystals Few None Seen /hpf Urine Bacteria None seen None Seen /hpf Urine Glucose Normal Normal mg/dL Urine Opiates Screen Pos NEGATIVE Urine Fentanyl Screen Neg NEGATIVE Urine Barbiturates Screen Neg NEGATIVE Urine Phencyclidine Screen Neg NEGATIVE Urine Amphetamines Screen Neg NEGATIVE Urine Benzodiazepines Screen Neg NEGATIVE Urine Cocaine Screen Neg NEGATIVE Urine Cannabinoids Screen Neg NEGATIVE Test 09/21/24 17:00 Range/Units Eosinophils (%) (Auto) 0.1 0.0-7.0 % Eosinophils # (Auto) 0 0-0.8 10 ^3/uL Basophils # (Auto) 0 0-0.2 10 ^3/uL Nucleated Red Blood Cells 0.0 % Lactic Acid Level 1.6 0.4-2.0 mmol/L B-Type Natriuretic Peptide 152.55 0-100 pg/mL Assessment Impression: Acute on chronic hypoxic respiratory failure Pulmonary hypertension with acute cor pulmonale Pneumonia Atelectasis Leukocytosis Plan: Chest x-ray imaging report reviewed. Diffuse interstitial opacities. Supplemental oxygen On 5 liters/minute via nasal cannula. keep O2 saturations above 92%. Bronchodilators Continue antibiotics and antifungals. Follow up cultures. Blood cultures no growth for 24 hours. IV steroids Taper as tolerated Continue Singulair p.o. q.h.s.. Continue sildenafil p.o. t.i.d. for pulmonary hypertension. Resume pts home medication Opsumit. She will bring in other home medications. F/u Echo report GI prophylaxis with Protonix Prognosis: Poor given multiple comorbidities. Rest of plan per hospitalist and other consultants. Thank you Dr. Mcdonough for allowing me to participate in this patient's care. Further recommendations will depend on patient's clinical course. Please do not hesitate to contact me if you have any questions or concerns. This medical document was created using an electronic medical record system with [employer] system. Although this document has been carefully reviewed, there may still be some phonetic and typographical errors. These areas are purely typographical due to imperfections of the software programs, and do not reflect any compromise in the patient's medical care. Plan discussed with: Patient, Other (RN, MD) EMRE TRAMMELL MD Sep 22, 2024 16:13
[2024-09-22] MEDS: OXYCODONE W/ ACETAMINOPHEN 5/325MG TABLET PO PRN (16:48)
[2024-09-22] MEDS: ALBUTEROL SULF 2.5 MG/0.5ML(0.5%) NEB SOLN NEB PRN (19:32)
[2024-09-22] MEDS: IPRATROPIUM BROM 0.5 MG/2.5ML INH SOL NEB PRN (19:32)
[2024-09-22] MEDS ORDERED: levoFLOXacin 250MG 50 ML IV SCH (21:00)
[2024-09-22] MEDS ORDERED: [UNRECOGNIZED DRUG - OTHER] IV SCH (22:00)
[2024-09-22] MEDS: MEROPENEM 1GM IVPB 50 ML IV SCH (22:16)
[2024-09-22] MEDS: MONTELUKAST SODIUM 10 MG TAB PO SCH (22:18)
[2024-09-23] VITALS (11 sets, daily range): BP systolic 103–141; BP diastolic 52–65; PULSE 58–76; RESP 16–18; TEMP 97.3–98.4; O2SAT 91–97
[2024-09-23] MEDS: LORATADINE 10 MG TAB PO PRN (01:24)
[2024-09-23] MEDS: PANTOPRAZOLE 40 MG TAB PO SCH (05:38)
[2024-09-23 06:16] LABS: Basophils # (auto) 0 10 ^3/uL (0-0.2); Basophils % (auto) 0.1 % (0.0-2.0); Eosinophils # (auto) 0 10 ^3/uL (0-0.8); Hematocrit 31.7 % (36.0-46.0); Hemoglobin 10.5 g/dL (12.2-16.2); Lymphocytes # (auto) 0.5 10 ^3/uL (0.4-5.4); Lymphocytes % (auto) 3.2 % (10.0-50.0); Mean Corpuscular Hemoglobin 33.2 pg (28.0-32.0); Mean Corpuscular Hgb Conc. 33.1 g/dL (32.0-36.0); Mean Corpuscular Volume 100.2 fL (80.0-100.0); Monocytes # (auto) 0.6 10 ^3/uL (0-1.3); Monocytes % (auto) 3.8 % (0.0-12.0); Neutrophils # (auto) 14.8 10 ^3/uL (1.6-8.6); Neutrophils % (auto) 92.9 % (37.0-80.0); Nucleated Red Blood Cells % 0.1 %; Platelet Count (auto) 252 10^3/uL (140-450); Red Blood Cells 3.17 10^6/uL (4.0-5.20); Red Cell Distribution Width 14.1 % (11.8-14.3); White Blood Cell 15.9 10^3/uL (4.4-10.8)
[2024-09-23 06:26] LABS: Anion Gap 7 (5-15); Carbon Dioxide 29 mmol/L (20-31); Sodium 144 mmol/L (136-145)
[2024-09-23 06:32] LABS: BUN/Creatinine Ratio 21.8 (10.0-20.0); Blood Urea Nitrogen 12 mg/dL (9-23); Chloride 108 mmol/L (98-107); Glucose 133 mg/dL (74-106)
[2024-09-23] MEDS: ASPirin 81 mg TAB PO SCH (09:08)
[2024-09-23] MEDS: PARoxetine 20 MG TAB PO SCH ×2 (09:09)
[2024-09-23] MEDS: FUROSEMIDE 40 MG TAB PO SCH (09:10)
[2024-09-23] MEDS: hydrOXYchloroQUINE SULFATE 200 MG TAB PO SCH (09:11)
[2024-09-23] MEDS: LEFLUNOMIDE 20MG TABLET PO SCH (09:14)
[2024-09-23] MEDS: OPSUMIT 10 MG TABLET PO SCH (09:15)
[2024-09-23] MEDS: FLUCONAZOLE 200MG/100ML 100 ML IV SCH (10:39)
--- NOTE | 2024-09-23 11:15 | DVH ---
CLINICAL INFORMATION: 64 years old, Female; interstitial lung disease. TECHNIQUE: Axial CT imaging of the chest was performed without IV contrast in the supine position. N o prone imaging was performed. No expiratory images were obtained. Images were displayed at 1.25 mm s lice thickness. Sagittal and coronal reformatted images were made, stored and reviewed. Evaluation is limited without IV contrast. One or more of the following dose reduction techniques were used: Autom ated exposure control. Adjustment of mA and/or kV according to patient size. CTDIvol = 14.55, 0.07, 0.07 mGy DLP = 495.5 mGy-cm COMPARISON: None FINDINGS: There is atelectasis and consolidation in the right middle lobe and right upper lobe with associated volume loss. Consolidation and ground-glass opacities are seen in the right lower lobe. Patchy areas of consolidation are seen in the left lower lobe with adjacent ground-glass attenuation. Additional small scattered foci of ground-glass attenuation are seen in both lungs. There is bronchiectasis and bronchial wall thickening in the right middle lobe, right upper lobe, and right lower lobe. Scattered small nodules are seen, including a 5 mm nodule in the posterior left lower lobe (series 2, image 46 ), a 4.5 mm nodule in the posterior left lower lobe (image 52), and additional small patchy nodular o pacities, which may be infectious or inflammatory in nature. No reticulation is seen. No cystic hurd ge or honeycombing. No thoracic aortic aneurysm. Heart size is within normal limits. There is dense coronary artery calci fication at the LAD. Main pulmonary artery appears within normal limits. Subcentimeter right paratrac heal lymph node is most likely reactive. No significant abnormality identified in the chest wall. No significant osseous abnormality identified. IMPRESSION: 1. Areas of atelectasis and consolidation are seen bilaterally, greater in the right lung with volume loss in the right lung as described above. Findings are most likely infectious or inflammatory in n ature appropriate clinical setting. Other etiologies including malignancy less likely, but can not be excluded in the appropriate clinical setting. Correlate with clinical findings. 2. Additional findings as detailed above.
--- NOTE | 2024-09-23 13:29 | DVHPN2 ---
Assessment/Plan Assessment/Plan Progress note Subjective 64 F with PAH admitted for COPDe. On home O2 4LPM. seen by me today during rounds improvement in resp status. CT hi res today, seen by pulm and cardio for PH Objective Physical exam Alert, oriented x3 PERRLA No JVD Bilateral crackles S1-S2 regular rate and rhythm Abdomen soft nontender, no organomegaly Moving all four extremities No lower extremity edema Lab WBC 20 Hb 11 MCV 100 Left shift Bicarb 32 Imaging CXR interstitial opacity Assessment and plan Acute on chronic hypoxic respiratory failure COPD group E with exacerbation Complex pneumonia, fungal? cannot rule out ILD pulmonary arterial hypertension chronic pain right heart failure hypothyroidism maintain spo2 >94% resume home meds, sildenafil, obsumit, lasix, paroxetine, levothyroxine albuterol ipatropium nebs c/w ana and fluconazole sputum culture high res chest CT resume pain management, CURES reviewed Replete electrolytes Diet regular DVT prophylaxis ambulatory Plan discussed with: Patient My Orders Orders - MARY KELLY MD Procedure Category Date Status Time Paroxetine Tablet PHA 09/23/24 In Process (Paxil Tablet) 10:00 Hi-Resolution Chest Ct CT 09/23/24 Resulted 08:52 Date of Service: Sep 23, 2024 Billing Provider: MARY KELLY MD Common Visit Codes: [id number] INP/OBS CARE(HIGH) MARY KELLY MD Sep 23, 2024 13:29
[2024-09-24] VITALS (14 sets, daily range): BP systolic 109–154; BP diastolic 53–67; PULSE 51–87; RESP 18–20; TEMP 97.5–98.4; O2SAT 93–99
--- NOTE | 2024-09-24 14:54 | DVHPN2 ---
Assessment/Plan Assessment/Plan Progress note Subjective 64 F with PAH admitted for COPDe. On home O2 4LPM. seen by me today during rounds breathing improved, CT done with nodules and infection, possible bronch? Objective Physical exam Alert, oriented x3 PERRLA No JVD Bilateral crackles S1-S2 regular rate and rhythm Abdomen soft nontender, no organomegaly Moving all four extremities No lower extremity edema Lab WBC 20 Hb 11 MCV 100 Left shift Bicarb 32 Imaging CXR interstitial opacity Assessment and plan Acute on chronic hypoxic respiratory failure COPD group E with exacerbation Complex pneumonia, fungal? cannot rule out ILD pulmonary arterial hypertension chronic pain right heart failure hypothyroidism maintain spo2 >94% resume home meds, sildenafil, obsumit, lasix, paroxetine, levothyroxine albuterol ipatropium nebs c/w ana and fluconazole sputum culture high res chest CT resume pain management, CURES reviewed Replete electrolytes Diet regular DVT prophylaxis ambulatory Plan discussed with: Patient Date of Service: Sep 24, 2024 Billing Provider: MARY KELLY MD Common Visit Codes: [id number] INP/OBS CARE(HIGH) MARY KELLY MD Sep 24, 2024 14:54
[2024-09-25] VITALS (9 sets, daily range): BP systolic 105–171; BP diastolic 58–73; PULSE 55–98; RESP 15–18; TEMP 97.4–98.5; O2SAT 92–99
[2024-09-25 07:16] LABS: Basophils # (auto) 0 10 ^3/uL (0-0.2); Basophils % (auto) 0.1 % (0.0-2.0); Eosinophils # (auto) 0 10 ^3/uL (0-0.8); Hemoglobin 10.5 g/dL (12.2-16.2); Lymphocytes # (auto) 0.4 10 ^3/uL (0.4-5.4); Mean Corpuscular Hemoglobin 33.9 pg (28.0-32.0); Mean Corpuscular Hgb Conc. 33.9 g/dL (32.0-36.0); Mean Corpuscular Volume 100.2 fL (80.0-100.0); Monocytes # (auto) 0.4 10 ^3/uL (0-1.3); Monocytes % (auto) 4.6 % (0.0-12.0); Neutrophils # (auto) 7.3 10 ^3/uL (1.6-8.6); Neutrophils % (auto) 90.3 % (37.0-80.0); Nucleated Red Blood Cells % 0.1 %; Platelet Count (auto) 223 10^3/uL (140-450); Red Cell Distribution Width 13.9 % (11.8-14.3); White Blood Cell 8.1 10^3/uL (4.4-10.8)
[2024-09-25 07:17] LABS: Chloride 107 mmol/L (98-107); Potassium 4.2 mmol/L (3.5-5.1)
[2024-09-25 07:18] LABS: Anion Gap 7 (5-15); Carbon Dioxide 31 mmol/L (20-31)
[2024-09-25 07:23] LABS: BUN/Creatinine Ratio 29.2 (10.0-20.0); Blood Urea Nitrogen 19 mg/dL (9-23)
[2024-09-25 07:35] LABS: Glucose 145 mg/dL (74-106); Sodium 145 mmol/L (136-145)
--- NOTE | 2024-09-25 11:25 | ECG ---
[facility] Test Date: 2024-09-21 Test Time: 16:49:41 Pat Name: CHUCK SALEHepartment: ER [facility] Gender: F Manager Of Development: NICOLASA : 1960 Requested By: IZZY RAYMOND Order Number: [id number] Reading MD: Jt Ribeiro Measurements Intervals [place] Rate: 97 P: 26 NM: 156 QRS: -7 QRSD: 89 T: 63 QT: 370 QTc: 470 Interpretive Statements Sinus arrhythmia Abnormal R-wave progression, early transition Left ventricular hypertrophy Anterior Q waves, possibly due to LVH Electronically Signed On 09-29-2024 9:45:38 PST by Jt Ribeiro Please click the below link to view image of tracing.
--- NOTE | 2024-09-25 13:49 | DVHPN2 ---
Progress Note - Dictate Date Seen: Sep 23, 2024 Medical Necessity Reason Pt with a Central, PICC or Fol: No Subjective PT WITH SOB CXR SHOWS RIGHT LOWER LOBE INFILTRATE VS FIBROSIS HX OF PAH HYPOTHYROIDISM PT HAS UNDER GONE 3 ROUNDS OF ABX WITH INHALERS AND STEROID vital signs Vital Sign Date Time Temp Pulse Resp B/P (MAP) Pulse Ox O2 Delivery O2 Flow Rate FiO2 09/25/24 10:01 97 Nasal Cannula 5.0 09/25/24 10:01 40 09/25/24 09:38 105/69 09/25/24 09:00 97.4 56 17 97.4 Total Intake and Output 09/24/24 09/24/24 09/25/24 15:00 23:00 07:00 Intake Total 250 ml 1580 ml 1050 ml Output Total 525 ml Balance 250 ml 1580 ml 525 ml medications Current Medications Medications Dose Ordered Sig/Taylor Route Start Time Stop Time Status Last Admin Dose Admin Albuterol 2.5 mg Q4HPRN PRN NEB 09/21/24 20:30 09/24/24 19:13 2.5 MG Ipratropium [place] 0.5 mg Q4HPRN PRN NEB 09/21/24 20:30 09/24/24 19:13 0.5 MG Methylprednisolone Sodium Succinate 40 mg Q8HR IV 09/21/24 22:00 09/25/24 05:54 40 MG Sodium Chloride 1,000 ml @ 60 mls/hr [id number] IV 09/21/24 20:45 09/25/24 08:07 60 MLS/HR Acetaminophen 650 mg Q6HP PRN PO 09/21/24 20:45 Levothyroxine Sodium 88 mcg QAM@0600 PO 09/22/24 06:00 09/25/24 06:12 88 MCG Oxycodone/ Acetaminophen 2 tab Q6HP PRN PO 09/22/24 13:00 09/25/24 12:19 2 TAB Morphine Sulfate 15 mg Q8HR PO 09/22/24 14:00 09/25/24 06:12 15 MG Baclofen 10 mg Q8HR PO 09/22/24 14:00 09/25/24 05:54 10 MG Pregabalin 100 mg TID PO 09/22/24 14:00 09/24/24 14:25 100 MG Paroxetine HCl 40 mg DAILY PO 09/23/24 10:00 09/25/24 09:38 40 MG Hydroxyzine Pamoate 50 mg Q6HP PRN PO 09/22/24 13:15 Montelukast Sodium 10 mg HS PO 09/22/24 22:00 09/24/24 22:10 10 MG Pantoprazole Sodium 40 mg DAILY@0600 PO 09/23/24 06:00 09/25/24 06:12 40 MG Sildenafil Citrate 20 mg TID@08,14,20 PO 09/22/24 14:00 09/25/24 08:07 20 MG Furosemide 40 mg DAILY PO 09/23/24 10:00 09/25/24 09:38 40 MG Patient Own Medication 1 DAILY PO 09/23/24 10:00 09/25/24 09:39 1 Hydroxychloroquine Sulfate 200 mg DAILY PO 09/23/24 10:00 09/25/24 09:37 200 MG Patient Own Medication 1 DAILY PO 09/23/24 10:00 Aspirin 81 mg DAILY PO 09/23/24 10:00 09/25/24 09:37 81 MG Paroxetine HCl 10 mg DAILY PO 09/23/24 10:00 09/25/24 09:38 10 MG Fluconazole 100 ml @ 100 mls/hr 10,11 IV 09/23/24 10:00 09/25/24 09:39 100 MLS/HR Patient Own Medication 1 g BID IV 09/22/24 22:00 UNV Meropenem 50 ml @ 17 mls/hr Q12HR IV 09/22/24 22:00 09/25/24 09:39 17 MLS/HR Loratadine 10 mg Q6HP PRN PO 09/23/24 00:00 09/23/24 01:24 10 MG laboratory and microbiology Laboratory Tests 09/25/24 05:01 Test 09/25/24 05:01 Range/Units Serum Glucose 145 H 74-106 mg/dL Problem List RIGHT LOWER LOBE INFILTRATE VS FIBROSIS HX OF PAH HYPOTHYROIDISM PT HAS UNDER GONE 3 ROUNDS OF ABX WITH INHALERS AND STEROID LEUKOCYTOSIS Assessment/Plan INHALERS BROAD SPECTRUM ABX DC LEVAQUIN PT HAS BEEN TREATED WITH LEVAQUIN AND WITH DOXYCYCLINE MEROPENAM AND DIFLUCAN CONSIDER BRONCHOSCOPY WITH BIOPSY Plan discussed with: Patient ANALY CORTEZ MD Sep 25, 2024 13:49
--- NOTE | 2024-09-25 13:52 | DVHPN2 ---
Progress Note - Dictate Date Seen: Sep 25, 2024 Medical Necessity Reason Pt with a Central, PICC or Fol: No Subjective PT WITH SOB CXR SHOWS RIGHT LOWER LOBE INFILTRATE VS FIBROSIS HX OF PAH HYPOTHYROIDISM PT HAS UNDER GONE 3 ROUNDS OF ABX WITH INHALERS AND STEROID vital signs Vital Sign Date Time Temp Pulse Resp B/P (MAP) Pulse Ox O2 Delivery O2 Flow Rate FiO2 09/25/24 10:01 97 Nasal Cannula 5.0 09/25/24 10:01 40 09/25/24 09:38 105/69 09/25/24 09:00 97.4 56 17 97.4 Total Intake and Output 09/24/24 09/24/24 09/25/24 15:00 23:00 07:00 Intake Total 250 ml 1580 ml 1050 ml Output Total 525 ml Balance 250 ml 1580 ml 525 ml medications Current Medications Medications Dose Ordered Sig/Taylor Route Start Time Stop Time Status Last Admin Dose Admin Albuterol 2.5 mg Q4HPRN PRN NEB 09/21/24 20:30 09/24/24 19:13 2.5 MG Ipratropium [place] 0.5 mg Q4HPRN PRN NEB 09/21/24 20:30 09/24/24 19:13 0.5 MG Methylprednisolone Sodium Succinate 40 mg Q8HR IV 09/21/24 22:00 09/25/24 05:54 40 MG Sodium Chloride 1,000 ml @ 60 mls/hr [id number] IV 09/21/24 20:45 09/25/24 08:07 60 MLS/HR Acetaminophen 650 mg Q6HP PRN PO 09/21/24 20:45 Levothyroxine Sodium 88 mcg QAM@0600 PO 09/22/24 06:00 09/25/24 06:12 88 MCG Oxycodone/ Acetaminophen 2 tab Q6HP PRN PO 09/22/24 13:00 09/25/24 12:19 2 TAB Morphine Sulfate 15 mg Q8HR PO 09/22/24 14:00 09/25/24 06:12 15 MG Baclofen 10 mg Q8HR PO 09/22/24 14:00 09/25/24 05:54 10 MG Pregabalin 100 mg TID PO 09/22/24 14:00 09/24/24 14:25 100 MG Paroxetine HCl 40 mg DAILY PO 09/23/24 10:00 09/25/24 09:38 40 MG Hydroxyzine Pamoate 50 mg Q6HP PRN PO 09/22/24 13:15 Montelukast Sodium 10 mg HS PO 09/22/24 22:00 09/24/24 22:10 10 MG Pantoprazole Sodium 40 mg DAILY@0600 PO 09/23/24 06:00 09/25/24 06:12 40 MG Sildenafil Citrate 20 mg TID@08,14,20 PO 09/22/24 14:00 09/25/24 08:07 20 MG Furosemide 40 mg DAILY PO 09/23/24 10:00 09/25/24 09:38 40 MG Patient Own Medication 1 DAILY PO 09/23/24 10:00 09/25/24 09:39 1 Hydroxychloroquine Sulfate 200 mg DAILY PO 09/23/24 10:00 09/25/24 09:37 200 MG Patient Own Medication 1 DAILY PO 09/23/24 10:00 Aspirin 81 mg DAILY PO 09/23/24 10:00 09/25/24 09:37 81 MG Paroxetine HCl 10 mg DAILY PO 09/23/24 10:00 09/25/24 09:38 10 MG Fluconazole 100 ml @ 100 mls/hr 10,11 IV 09/23/24 10:00 09/25/24 09:39 100 MLS/HR Patient Own Medication 1 g BID IV 09/22/24 22:00 UNV Meropenem 50 ml @ 17 mls/hr Q12HR IV 09/22/24 22:00 09/25/24 09:39 17 MLS/HR Loratadine 10 mg Q6HP PRN PO 09/23/24 00:00 09/23/24 01:24 10 MG laboratory and microbiology Laboratory Tests 09/25/24 05:01 Test 09/25/24 05:01 Range/Units Serum Glucose 145 H 74-106 mg/dL Problem List RIGHT LOWER LOBE INFILTRATE VS FIBROSIS HX OF PAH HYPOTHYROIDISM PT HAS UNDER GONE 3 ROUNDS OF ABX WITH INHALERS AND STEROID LEUKOCYTOSIS Assessment/Plan INHALERS BROAD SPECTRUM ABX DC LEVAQUIN PT HAS BEEN TREATED WITH LEVAQUIN AND WITH DOXYCYCLINE MEROPENAM AND DIFLUCAN CONSIDER BRONCHOSCOPY WITH BIOPSY [UL CONSULT PENDING CXR STILL WITH CONSOLIDATION WITH INFLAMMATORY CHANGES Plan discussed with: Patient ANALY CORTEZ MD Sep 25, 2024 13:52
[2024-09-25] MEDS ORDERED: PRE5T PO (17:42)
[2024-09-25] MEDS ORDERED: HYDR50TA69 PO (17:42)
--- NOTE | 2024-09-25 21:17 | DVHPN2 ---
Assessment/Plan Assessment/Plan Progress note Subjective 64 F with PAH admitted for COPDe. On home O2 4LPM. seen by me today during rounds discussed with puljared and jenae, for bronch wednesday. patient does not want to wea r telemetry, O2 recs back to baseline, will downgrade to medsurg Objective Physical exam Alert, oriented x3 PERRLA No JVD Bilateral crackles S1-S2 regular rate and rhythm Abdomen soft nontender, no organomegaly Moving all four extremities No lower extremity edema Lab WBC 20 Hb 11 MCV 100 Left shift Bicarb 32 Imaging CXR interstitial opacity Assessment and plan Acute on chronic hypoxic respiratory failure COPD group E with exacerbation Complex pneumonia, fungal? cannot rule out ILD pulmonary arterial hypertension chronic pain right heart failure hypothyroidism maintain spo2 >94% resume home meds, sildenafil, obsumit, lasix, paroxetine, levothyroxine albuterol ipatropium nebs c/w ana and fluconazole sputum culture high res chest CT reviewed for bronch wednesday resume pain management, CURES reviewed Replete electrolytes Diet regular DVT prophylaxis ambulatory Plan discussed with: Patient Date of Service: Sep 25, 2024 Billing Provider: MARY KELLY MD Common Visit Codes: [id number] INP/OBS CARE(HIGH) MARY KELLY MD Sep 25, 2024 21:17
[2024-09-26] VITALS (8 sets, daily range): BP systolic 126–169; BP diastolic 60–88; PULSE 54–96; RESP 14–16; TEMP 97.5–98.8; O2SAT 95–98
[2024-09-26 06:43] LABS: Albumin 3.8 g/dL (3.2-4.8); Alkaline Phosphatase 57 U/L (46-116); Anion Gap 5 (5-15); Aspartate Aminotransferase 33 U/L (13-40); BUN/Creatinine Ratio 28.3 (10.0-20.0); Blood Urea Nitrogen 17 mg/dL (9-23); Calcium 9.7 mg/dL (8.7-10.4); Chloride 103 mmol/L (98-107); Sodium 144 mmol/L (136-145); Total Protein 5.7 g/dL (5.7-8.2)
[2024-09-26 06:47] LABS: Alanine Aminotransferase 53 U/L (7-40); Bilirubin, Total 0.3 mg/dL (0.2-1.0); Carbon Dioxide 36 mmol/L (20-31); Glucose 140 mg/dL (74-106)
--- NOTE | 2024-09-26 10:33 | DVHPN2 ---
Progress Note - Dictate Date Seen: Sep 25, 2024 Medical Necessity Reason Pt with a Central, PICC or Fol: No Subjective Patient seen and examined at bedside. Remains on supplemental oxygen Overnight events reviewed. vital signs Vital Sign Date Time Temp Pulse Resp B/P (MAP) Pulse Ox O2 Delivery O2 Flow Rate FiO2 09/26/24 09:00 97.5 58 16 169/70 (103) 97 97.5 09/26/24 08:00 Nasal Cannula* 5 40 Total Intake and Output 09/25/24 09/25/24 09/26/24 15:00 23:00 07:00 Intake Total 570 ml 1448 ml 3590 ml Output Total 1300 ml 2000 ml Balance 570 ml 148 ml 1590 ml medications Current Medications Medications Dose Ordered Sig/Taylor Route Start Time Stop Time Status Last Admin Dose Admin Methylprednisolone Sodium Succinate 40 mg Q8HR IV 09/21/24 22:00 09/26/24 06:37 40 MG Sodium Chloride 1,000 ml @ 60 mls/hr [id number] IV 09/21/24 20:45 09/26/24 09:07 60 MLS/HR Acetaminophen 650 mg Q6HP PRN PO 09/21/24 20:45 Levothyroxine Sodium 88 mcg QAM@0600 PO 09/22/24 06:00 09/26/24 06:39 88 MCG Oxycodone/ Acetaminophen 2 tab Q6HP PRN PO 09/22/24 13:00 09/26/24 04:20 2 TAB Morphine Sulfate 15 mg Q8HR PO 09/22/24 14:00 09/26/24 06:38 15 MG Baclofen 10 mg Q8HR PO 09/22/24 14:00 09/26/24 06:37 10 MG Pregabalin 100 mg TID PO 09/22/24 14:00 09/26/24 06:38 100 MG Paroxetine HCl 40 mg DAILY PO 09/23/24 10:00 09/25/24 09:38 40 MG Hydroxyzine Pamoate 50 mg Q6HP PRN PO 09/22/24 13:15 Montelukast Sodium 10 mg HS PO 09/22/24 22:00 09/25/24 22:41 10 MG Pantoprazole Sodium 40 mg DAILY@0600 PO 09/23/24 06:00 09/26/24 06:38 40 MG Sildenafil Citrate 20 mg TID@,20 PO 09/22/24 14:00 09/26/24 08:52 20 MG Furosemide 40 mg DAILY PO 09/23/24 10:00 09/25/24 09:38 40 MG Patient Own Medication 1 DAILY PO 09/23/24 10:00 09/25/24 09:39 1 Hydroxychloroquine Sulfate 200 mg DAILY PO 09/23/24 10:00 09/25/24 09:37 200 MG Patient Own Medication 1 DAILY PO 09/23/24 10:00 Aspirin 81 mg DAILY PO 09/23/24 10:00 09/25/24 09:37 81 MG Paroxetine HCl 10 mg DAILY PO 09/23/24 10:00 09/25/24 09:38 10 MG Fluconazole 100 ml @ 100 mls/hr 10,11 IV 09/23/24 10:00 09/25/24 14:29 100 MLS/HR Patient Own Medication 1 g BID IV 09/22/24 22:00 UNV Loratadine 10 mg Q6HP PRN PO 09/23/24 00:00 09/23/24 01:24 10 MG Meropenem 50 ml @ 17 mls/hr Q12H IV 09/26/24 12:00 objective Gen.: Patient lying in bed in no apparent distress. On supplemental oxygen. Head: Normocephalic, atraumatic. Eyes: EOMI/PERRLA. Ears: Normal hearing. Normal anatomy. Neck/trachea: Trachea midline, supple. Nose: Normal external anatomy. Mouth: Moist mucous membranes. Chest: Decreased air entry bilaterally. No wheezing or rhonchi. Cardiovascular: Positive S1, positive S2. Regular rate and rhythm. Abdomen: Positive bowel sounds in all 4 quadrants. Soft, non-tender, non- distended. : Deferred. Rectal: Deferred. Skin: Warm, dry. Intact. Extremities: 2+ radial pulses bilaterally. No lower extremity edema. Neuro: Awake, alert, oriented x3. No gross motor or sensory deficits. Cranial nerves II through XII intact. Gait not assessed. laboratory and microbiology Laboratory Tests 09/26/24 04:48 09/25/24 05:01 Test 09/26/24 04:48 Range/Units Serum Glucose 140 H 74-106 mg/dL Assessment/Plan Impression: Acute on chronic hypoxic respiratory failure Pulmonary hypertension with acute cor pulmonale Pneumonia Atelectasis Leukocytosis Events: Remains on supplemental oxygen, 5 LPM NC Taper O2 as tolerated Continue steroids Continue pulmonary hypertension meds. Incentive spirometry WBC within normal limits - 8.1. Labs and imaging reviewed. Rest of plan as noted below. Plan: Chest x-ray imaging report reviewed. Diffuse interstitial opacities. Supplemental oxygen On 5 liters/minute via nasal cannula. keep O2 saturations above 92%. Continue antibiotics and antifungals. Follow up cultures. Blood cultures no growth for 72 hours. IV steroids Taper as tolerated Continue Singulair p.o. q.h.s.. Continue sildenafil p.o. t.i.d. for pulmonary hypertension. Resume pts home medication Opsumit. She will bring in other home medications. F/u Echo report GI prophylaxis with Protonix Prognosis: Poor given multiple comorbidities. Rest of plan per hospitalist and other consultants. Thank you Dr. Mcdonough for allowing me to participate in this patient's care. Further recommendations will depend on patient's clinical course. Please do not hesitate to contact me if you have any questions or concerns. This medical document was created using an electronic medical record system with [employer] dictation system. Although this document has been carefully reviewed, there may still be some phonetic and typographical errors. These areas are purely typographical due to imperfections of the software programs, and do not reflect any compromise in the patient's medical care. Plan discussed with: Patient, Other (REGINALD Winslow) EMRE TRAMMELL MD Sep 26, 2024 10:33
[2024-09-26] MEDS ORDERED: MEROPENEM 1GM IVPB 50 ML IV SCH (12:00)
--- NOTE | 2024-09-26 12:32 | DVHPN2 ---
Progress Note - Dictate Date Seen: Sep 26, 2024 Medical Necessity Reason Pt with a Central, PICC or Fol: No Subjective PT WITH SOB CXR SHOWS RIGHT LOWER LOBE INFILTRATE VS FIBROSIS HX OF PAH HYPOTHYROIDISM PT HAS UNDER GONE 3 ROUNDS OF ABX WITH INHALERS AND STEROID vital signs Vital Sign Date Time Temp Pulse Resp B/P (MAP) Pulse Ox O2 Delivery O2 Flow Rate FiO2 09/26/24 12:09 169/70 09/26/24 09:00 97.5 58 16 97 97.5 09/26/24 08:00 Nasal Cannula* 5 40 Total Intake and Output 09/25/24 09/25/24 09/26/24 15:00 23:00 07:00 Intake Total 570 ml 1448 ml 3590 ml Output Total 1300 ml 2000 ml Balance 570 ml 148 ml 1590 ml medications Current Medications Medications Dose Ordered Sig/Taylor Route Start Time Stop Time Status Last Admin Dose Admin Methylprednisolone Sodium Succinate 40 mg Q8HR IV 09/21/24 22:00 09/26/24 06:37 40 MG Sodium Chloride 1,000 ml @ 60 mls/hr [id number] IV 09/21/24 20:45 09/26/24 09:07 60 MLS/HR Acetaminophen 650 mg Q6HP PRN PO 09/21/24 20:45 Levothyroxine Sodium 88 mcg QAM@0600 PO 09/22/24 06:00 09/26/24 06:39 88 MCG Oxycodone/ Acetaminophen 2 tab Q6HP PRN PO 09/22/24 13:00 09/26/24 12:07 2 TAB Morphine Sulfate 15 mg Q8HR PO 09/22/24 14:00 09/26/24 06:38 15 MG Baclofen 10 mg Q8HR PO 09/22/24 14:00 09/26/24 06:37 10 MG Pregabalin 100 mg TID PO 09/22/24 14:00 09/26/24 06:38 100 MG Paroxetine HCl 40 mg DAILY PO 09/23/24 10:00 09/26/24 12:10 40 MG Hydroxyzine Pamoate 50 mg Q6HP PRN PO 09/22/24 13:15 Montelukast Sodium 10 mg HS PO 09/22/24 22:00 09/25/24 22:41 10 MG Pantoprazole Sodium 40 mg DAILY@0600 PO 09/23/24 06:00 09/26/24 06:38 40 MG Sildenafil Citrate 20 mg TID@08,14,20 PO 09/22/24 14:00 09/26/24 08:52 20 MG Furosemide 40 mg DAILY PO 09/23/24 10:00 09/26/24 12:09 40 MG Patient Own Medication 1 DAILY PO 09/23/24 10:00 09/26/24 12:11 1 Hydroxychloroquine Sulfate 200 mg DAILY PO 09/23/24 10:00 09/26/24 12:09 200 MG Patient Own Medication 1 DAILY PO 09/23/24 10:00 09/26/24 12:11 1 Aspirin 81 mg DAILY PO 09/23/24 10:00 09/26/24 12:09 81 MG Paroxetine HCl 10 mg DAILY PO 09/23/24 10:00 09/26/24 12:10 10 MG Fluconazole 100 ml @ 100 mls/hr 10,11 IV 09/23/24 10:00 09/26/24 12:09 100 MLS/HR Patient Own Medication 1 g BID IV 09/22/24 22:00 UNV Loratadine 10 mg Q6HP PRN PO 09/23/24 00:00 09/23/24 01:24 10 MG Meropenem 50 ml @ 17 mls/hr Q12H IV 09/26/24 12:00 laboratory and microbiology Laboratory Tests 09/26/24 04:48 09/25/24 05:01 Test 09/26/24 04:48 Range/Units Serum Glucose 140 H 74-106 mg/dL Problem List RIGHT LOWER LOBE INFILTRATE VS FIBROSIS HX OF PAH HYPOTHYROIDISM PT HAS UNDER GONE 3 ROUNDS OF ABX WITH INHALERS AND STEROID LEUKOCYTOSIS Assessment/Plan INHALERS BROAD SPECTRUM ABX DC LEVAQUIN PT HAS BEEN TREATED WITH LEVAQUIN AND WITH DOXYCYCLINE MEROPENAM AND DIFLUCAN CONSIDER BRONCHOSCOPY WITH BIOPSY [UL CONSULT PENDING CXR STILL WITH CONSOLIDATION WITH INFLAMMATORY CHANGES WBC NOW BACK TO BASELINE Dietary Evaluation Review Comments: 1) Consider a 2gm Sodium diet 2) Continue current plan of care Expected Outcomes/Goals: F/U in 3-5 days Plan discussed with: Patient ANALY CORTEZ MD Sep 26, 2024 12:32
--- NOTE | 2024-09-26 15:01 | DVHPN2 ---
Assessment/Plan Assessment/Plan Progress note Subjective 64 F with PAH admitted for COPDe. On home O2 4LPM. seen by me today during rounds for bronch tomorrow, c/w abx, improving Objective Physical exam Alert, oriented x3 PERRLA No JVD Bilateral crackles S1-S2 regular rate and rhythm Abdomen soft nontender, no organomegaly Moving all four extremities No lower extremity edema Lab WBC 20 Hb 11 MCV 100 Left shift Bicarb 32 Imaging CXR interstitial opacity Assessment and plan Acute on chronic hypoxic respiratory failure COPD group E with exacerbation Complex pneumonia, fungal? cannot rule out ILD pulmonary arterial hypertension chronic pain right heart failure hypothyroidism maintain spo2 >94% resume home meds, sildenafil, obsumit, lasix, paroxetine, levothyroxine albuterol ipatropium nebs c/w ana and fluconazole sputum culture high res chest CT reviewed for bronch wednesday resume pain management, CURES reviewed Replete electrolytes Diet regular DVT prophylaxis ambulatory Plan discussed with: Patient My Orders Orders - MARY KELLY MD Procedure Category Date Status Time Dietary NOTICE 09/26/24 Transmitted Recommendations 10:33 Date of Service: Sep 26, 2024 Billing Provider: MARY KELLY MD Common Visit Codes: [id number] INP/OBS CARE(HIGH) MARY KELLY MD Sep 26, 2024 15:01
[2024-09-26] MEDS: MEROPENEM 1GM IVPB 50 ML IV SCH (15:53)
[2024-09-26 20:16] LABS: INR 0.98 (0.9-1.15); Partial Thromboplastin Time 22.1 SEC (24.5-34.5); Prothrombin Time 10.4 sec (9.3-11.8)
--- NOTE | 2024-09-26 20:52 | DVHPN2 ---
Progress Note - Dictate Date Seen: Sep 26, 2024 Medical Necessity Reason Pt with a Central, PICC or Fol: No Subjective Patient seen and examined at bedside. Remains on supplemental oxygen Overnight events reviewed. vital signs Vital Sign Date Time Temp Pulse Resp B/P (MAP) Pulse Ox O2 Delivery O2 Flow Rate FiO2 09/26/24 17:00 97.8 68 14 126/66 (86) 98 97.8 09/26/24 10:00 Nasal Cannula 5.0 09/26/24 10:00 40 Total Intake and Output 09/25/24 09/25/24 09/26/24 15:00 23:00 07:00 Intake Total 570 ml 1448 ml 3590 ml Output Total 1300 ml 2000 ml Balance 570 ml 148 ml 1590 ml medications Current Medications Medications Dose Ordered Sig/Taylor Route Start Time Stop Time Status Last Admin Dose Admin Methylprednisolone Sodium Succinate 40 mg Q8HR IV 09/21/24 22:00 09/26/24 15:54 40 MG Sodium Chloride 1,000 ml @ 60 mls/hr [id number] IV 09/21/24 20:45 09/26/24 09:07 60 MLS/HR Acetaminophen 650 mg Q6HP PRN PO 09/21/24 20:45 Levothyroxine Sodium 88 mcg QAM@0600 PO 09/22/24 06:00 09/26/24 06:39 88 MCG Oxycodone/ Acetaminophen 2 tab Q6HP PRN PO 09/22/24 13:00 09/26/24 20:00 2 TAB Morphine Sulfate 15 mg Q8HR PO 09/22/24 14:00 09/26/24 16:11 15 MG Baclofen 10 mg Q8HR PO 09/22/24 14:00 09/26/24 15:55 10 MG Pregabalin 100 mg TID PO 09/22/24 14:00 09/26/24 15:55 100 MG Paroxetine HCl 40 mg DAILY PO 09/23/24 10:00 09/26/24 12:10 40 MG Hydroxyzine Pamoate 50 mg Q6HP PRN PO 09/22/24 13:15 Montelukast Sodium 10 mg HS PO 09/22/24 22:00 09/25/24 22:41 10 MG Pantoprazole Sodium 40 mg DAILY@0600 PO 09/23/24 06:00 09/26/24 06:38 40 MG Sildenafil Citrate 20 mg TID@08,14,20 PO 09/22/24 14:00 09/26/24 20:00 20 MG Furosemide 40 mg DAILY PO 09/23/24 10:00 09/26/24 12:09 40 MG Patient Own Medication 1 DAILY PO 09/23/24 10:00 09/26/24 12:11 1 Hydroxychloroquine Sulfate 200 mg DAILY PO 09/23/24 10:00 09/26/24 12:09 200 MG Patient Own Medication 1 DAILY PO 09/23/24 10:00 09/26/24 12:11 1 Aspirin 81 mg DAILY PO 09/23/24 10:00 09/26/24 12:09 81 MG Paroxetine HCl 10 mg DAILY PO 09/23/24 10:00 09/26/24 12:10 10 MG Fluconazole 100 ml @ 100 mls/hr 10,11 IV 09/23/24 10:00 09/26/24 13:56 100 MLS/HR Patient Own Medication 1 g BID IV 09/22/24 22:00 UNV Loratadine 10 mg Q6HP PRN PO 09/23/24 00:00 09/23/24 01:24 10 MG Meropenem 50 ml @ 17 mls/hr Q8HR IV 09/26/24 15:17 09/26/24 15:53 17 MLS/HR objective Gen.: Patient lying in bed in no apparent distress. On supplemental oxygen. Head: Normocephalic, atraumatic. Eyes: EOMI/PERRLA. Ears: Normal hearing. Normal anatomy. Neck/trachea: Trachea midline, supple. Nose: Normal external anatomy. Mouth: Moist mucous membranes. Chest: Decreased air entry bilaterally. No wheezing or rhonchi. Cardiovascular: Positive S1, positive S2. Regular rate and rhythm. Abdomen: Positive bowel sounds in all 4 quadrants. Soft, non-tender, non- distended. : Deferred. Rectal: Deferred. Skin: Warm, dry. Intact. Extremities: 2+ radial pulses bilaterally. No lower extremity edema. Neuro: Awake, alert, oriented x3. No gross motor or sensory deficits. Cranial nerves II through XII intact. Gait not assessed. laboratory and microbiology Laboratory Tests 09/26/24 04:48 09/25/24 05:01 Test 09/26/24 04:48 Range/Units Serum Glucose 140 H 74-106 mg/dL Assessment/Plan Impression: Acute on chronic hypoxic respiratory failure Pulmonary hypertension with acute cor pulmonale Pneumonia Atelectasis Leukocytosis Events: Remains on supplemental oxygen, 5 LPM NC Taper O2 as tolerated Plan for bronchoscopy in the AM. Continue antibiotics Continue steroids Continue pulmonary hypertension meds. Incentive spirometry Obtain PT/INR. Monitor blood pressures. Labs and imaging reviewed. Rest of plan as noted below. Plan: Chest x-ray imaging report reviewed. Diffuse interstitial opacities. Supplemental oxygen On 5 liters/minute via nasal cannula. keep O2 saturations above 92%. Continue antibiotics and antifungals. Follow up cultures. Blood cultures no growth x5 days. IV steroids Taper as tolerated Continue Singulair p.o. q.h.s.. Continue sildenafil p.o. t.i.d. for pulmonary hypertension. Resume pts home medication Opsumit. She will bring in other home medications. F/u Echo report GI prophylaxis with Protonix Prognosis: Poor given multiple comorbidities. Rest of plan per hospitalist and other consultants. Thank you Dr. Mcdonough for allowing me to participate in this patient's care. Further recommendations will depend on patient's clinical course. Please do not hesitate to contact me if you have any questions or concerns. This medical document was created using an electronic medical record system with [employer] dictation system. Although this document has been carefully reviewed, there may still be some phonetic and typographical errors. These areas are purely typographical due to imperfections of the software programs, and do not reflect any compromise in the patient's medical care. Dietary Evaluation Review Comments: 1) Consider a 2gm Sodium diet 2) Continue current plan of care Expected Outcomes/Goals: F/U in 3-5 days Plan discussed with: Patient, Other (REGINALD Waite) EMRE TRAMMELL MD Sep 26, 2024 20:52
[2024-09-27] VITALS (10 sets, daily range): BP systolic 108–149; BP diastolic 63–118; PULSE 42–87; RESP 14–20; TEMP 97.3–98; O2SAT 86–99
[2024-09-27] MEDS ORDERED: LIDOCAINE 2% JELLY 11ml (GLYDO) ONE (10:10)
[2024-09-27] MEDS ORDERED: GLYCOPYRROLATE 0.2 MG/ML 1ML VIAL ONE (10:10)
[2024-09-27] MEDS ORDERED: LIDOCAINE 2%HCL (LOCAL ANESTH.) INJ 20ML MDV ONE (10:10)
[2024-09-27] MEDS ORDERED: SODIUM CHLORIDE LOCK 10 ML ONE (10:11)
[2024-09-27] MEDS: EPINEPHrine HCL 1 MG/1 ML AMP ONE (10:37)
[2024-09-27] MEDS: fentaNYL CITRATE 100 MCG/2 ML VL ONE (10:52)
[2024-09-27] MEDS: diphenhdrAMINE HCL 50 MG/1 ML VL ONE (10:52)
[2024-09-27] MEDS: MIDAZOLAM HCL 5 MG/ML-1ML VIAL ONE (10:52)
--- NOTE | 2024-09-27 11:32 | DVHNC2 ---
Procedure - Bronchoscopy procedure note: Indications: Right middle lobe consolidation, r/o pneumonia vs inflammation vs MAC. Possible mucous plugging. Medicines: See satellite instruction facilitator notes. Versed 4 mg IVP, Fentanyl 50 mcg IVP, Glycopyrrolate 0.2 mg IVP, Benadryl 25 mg IVP. Complications: None Procedure: Patient medications and allergies reviewed. The risks and benefits of the procedure and the sedation options and risk were discussed with the patient. All questions were answered and informed consent was obtained. Patient identification and proposed procedure were verified prior to the procedure by the physician, and a nurse, and the respiratory therapist in ICU room. The heart rate, respiratory rate, oxygen saturations, blood pressure, adequacy of pulmonary ventilation, and response to care were monitored throughout the procedure. The physical status of the patient was reassessed after the procedure. After obtaining informed consent, the bronchoscope was introduced through the endotracheal tube and advanced into the trachea bronchial tree of both lungs. The procedure was accomplished without difficulty. The patient tolerated the procedure well. Findings: The trachea is in normal caliber. The becca is sharp. The tracheobronchial tree of the right lung was examined to at least the first subsegmental level. The bronchial mucosa and anatomy in the right lung are normal. There are no endobronchial lesions. There was copious whitish secretions from right main stem bronchus onward throughout R4-R10. Right middle lobe (RML) Bronchoalveolar lavage (BAL) obtained. RML BAL sent for gram stain and culture, viral culture, fungal culture, and AFB culture. The left upper lobe, lingula, and left lower lobe were examined to at least the first subsegmental level. Bronchial mucosa was abnormal. Mucosal petechiae were noted. The anatomy in the left upper lobe and lingula are normal. There were no endobronchial lesions. There was copious whitish secretions from left main stem bronchus onward throughout L6-L10. Mucous plugging removed from L6-L10. Possib le aspiration, secretions were bile-like, yellow. Secretions were viscous and thick. Sent for gram stain and culture. There was no active bleeding at the completion of the procedure. Estimated blood loss: Less than 5 mL. Impression: Left lower lobe atelectasis due to mucous plugging Left lung mucosal petechiae Mucous plugging from R4-R10 Right Middle Lobe (RML) lateral segment BAL performed RML lateral segment Brushings RML segment Biopsy Recommendation: Follow-up RML BAL, RML brushings and biopsy and Left lung washing results. Procedure codes: 43693, bronchoscopy, rigid and flexible, including fluoroscopic guidance, one performed; with bronchial endobronchial biopsy, single or multiple sites EMRE TRAMMELL MD Sep 27, 2024 11:32
--- NOTE | 2024-09-27 11:35 | DVHNC2 ---
Procedure - I administered moderate sedation throughout the 16 minutes of the procedure. An independent observer administered medications at my direction and monitored the patient's level of consciousness and physiological status throughout the procedure. CPT 26882 for the first 15 minutes. CPT 17322 for each additional 15 minutes of conscious sedation. CONSCIOUS SEDATION PROCEDURE NOTE: Procedural Sedation Attending: Dr Terrance Jack Indications: Bronchoscopy with Biopsy [place] Protocol: a time out was performed and the correct patient and site were verified Consent: The risks and benefits of monitored anesthesia care, including the risk of aspiration, deep sedation requiring airway management including possible intubation, nausea/vomiting and the risks of not performing the procedure, including severe pain and inability to complete the procedure, were all discussed with the patient. The alternatives of performing the procedure, including local anesthesia and IV analgesia, also discussed. The patient has a ride home available. ASA Class: II-mild systemic disease Mallampati Score: 2 Pre-anesthesia evaluation, including history, exam, and informed consent is documented in the note above. Monitoring: Continuous monitoring of heart rate, respiratory rate, pulse oximetry and ETCO2. Supplemental oxygen prior to and during procedure via nasal cannula. Resuscitation equipment available at the bedside during sedation. Intra-service start time: 10:52 am Intra-service stop time: 11:11 am The patient received Fentanyl 50mcg, Versed 4 mg, Glycopyrrolate 0.2 mg, and Benadryl 25 mg IVP and dosages were recorded on the sedation form. The patient was recovered from the sedation without complication or incident. Patient returned to pre-sedation level of awareness. The monitoring was discontinued at this time. Post-anesthesia evaluation: Respiratory function, cardiovascular function, temperature, and mental status [did/did not] return to pre-anesthetic state. Pain was controlled. The patient did tolerate p.o. EMRE JACK MD Sep 27, 2024 11:35
--- NOTE | 2024-09-27 13:03 | DVH ---
EXAM: XY CHEST XRAY 1 VIEW Indication: Post Bronchoscopy Technique: Single frontal view of the chest was obtained Comparison: None FINDINGS: Lines and Tubes: None Lungs: Multifocal consolidative opacities. Pleura: No effusion. No pneumothorax. Cardiomediastinal contours: Unremarkable Bones: No acute osseous abnormality. IMPRESSION: Multifocal bilateral consolidative opacities.
--- NOTE | 2024-09-27 13:06 | DVHPN2 ---
Progress Note - Dictate Date Seen: Sep 27, 2024 Medical Necessity Reason Pt with a Central, PICC or Fol: No Subjective PT WITH SOB CXR SHOWS RIGHT LOWER LOBE INFILTRATE VS FIBROSIS HX OF PAH HYPOTHYROIDISM PT HAS UNDER GONE 3 ROUNDS OF ABX WITH INHALERS AND STEROID vital signs Vital Sign Date Time Temp Pulse Resp B/P (MAP) Pulse Ox O2 Delivery O2 Flow Rate FiO2 09/27/24 12:07 87 14 97 Non-Rebreather 10.0 09/27/24 11:50 164/68 (100) 09/27/24 11:45 97 09/27/24 11:19 97.5 97.5 Total Intake and Output 09/26/24 09/26/24 09/27/24 15:00 23:00 07:00 Intake Total 200 ml 1800 ml 50 ml Output Total 8 ml 800 ml Balance 200 ml 1792 ml -750 ml medications Current Medications Medications Dose Ordered Sig/Taylor Route Start Time Stop Time Status Last Admin Dose Admin Methylprednisolone Sodium Succinate 40 mg Q8HR IV 09/21/24 22:00 09/27/24 05:37 40 MG Sodium Chloride 1,000 ml @ 60 mls/hr [id number] IV 09/21/24 20:45 09/26/24 09:07 60 MLS/HR Acetaminophen 650 mg Q6HP PRN PO 09/21/24 20:45 Levothyroxine Sodium 88 mcg QAM@0600 PO 09/22/24 06:00 09/27/24 05:38 88 MCG Oxycodone/ Acetaminophen 2 tab Q6HP PRN PO 09/22/24 13:00 09/27/24 03:15 2 TAB Morphine Sulfate 15 mg Q8HR PO 09/22/24 14:00 09/27/24 05:38 15 MG Baclofen 10 mg Q8HR PO 09/22/24 14:00 09/27/24 05:38 10 MG Pregabalin 100 mg TID PO 09/22/24 14:00 09/27/24 05:38 100 MG Paroxetine HCl 40 mg DAILY PO 09/23/24 10:00 09/26/24 12:10 40 MG Hydroxyzine Pamoate 50 mg Q6HP PRN PO 09/22/24 13:15 Montelukast Sodium 10 mg HS PO 09/22/24 22:00 09/26/24 21:34 10 MG Pantoprazole Sodium 40 mg DAILY@0600 PO 09/23/24 06:00 09/27/24 05:38 40 MG Sildenafil Citrate 20 mg TID@08,14,20 PO 09/22/24 14:00 09/26/24 20:00 20 MG Furosemide 40 mg DAILY PO 09/23/24 10:00 09/26/24 12:09 40 MG Patient Own Medication 1 DAILY PO 09/23/24 10:00 09/26/24 12:11 1 Hydroxychloroquine Sulfate 200 mg DAILY PO 09/23/24 10:00 09/26/24 12:09 200 MG Patient Own Medication 1 DAILY PO 09/23/24 10:00 09/26/24 12:11 1 Aspirin 81 mg DAILY PO 09/23/24 10:00 09/26/24 12:09 81 MG Paroxetine HCl 10 mg DAILY PO 09/23/24 10:00 09/26/24 12:10 10 MG Fluconazole 100 ml @ 100 mls/hr 10,11 IV 09/23/24 10:00 09/26/24 13:56 100 MLS/HR Patient Own Medication 1 g BID IV 09/22/24 22:00 UNV Loratadine 10 mg Q6HP PRN PO 09/23/24 00:00 09/23/24 01:24 10 MG Meropenem 50 ml @ 17 mls/hr Q8HR IV 09/26/24 15:17 09/27/24 05:37 17 MLS/HR laboratory and microbiology Laboratory Tests 09/26/24 04:48 09/25/24 05:01 Test 09/26/24 04:48 Range/Units Serum Glucose 140 H 74-106 mg/dL Problem List RIGHT LOWER LOBE INFILTRATE VS FIBROSIS HX OF PAH HYPOTHYROIDISM PT HAS UNDER GONE 3 ROUNDS OF ABX WITH INHALERS AND STEROID LEUKOCYTOSIS Assessment/Plan INHALERS BROAD SPECTRUM ABX DC LEVAQUIN PT HAS BEEN TREATED WITH LEVAQUIN AND WITH DOXYCYCLINE MEROPENAM AND DIFLUCAN CONSIDER BRONCHOSCOPY WITH BIOPSY [UL CONSULT PENDING CXR STILL WITH CONSOLIDATION WITH INFLAMMATORY CHANGES WBC NOW BACK TO BASELINE BRONCHOSCOPY MAY DC HOME IN AM Dietary Evaluation Review Comments: 1) Consider a 2gm Sodium diet 2) Continue current plan of care Expected Outcomes/Goals: F/U in 3-5 days Plan discussed with: Patient ANALY CORTEZ MD Sep 27, 2024 13:06
--- NOTE | 2024-09-27 15:27 | DVHPN2 ---
Assessment/Plan Assessment/Plan Progress note Subjective 64 F with PAH admitted for COPDe. On home O2 4LPM. seen by me today during rounds s/p bronch today, bx sent to lab, may be discharged in AM Objective Physical exam Alert, oriented x3 PERRLA No JVD Bilateral crackles S1-S2 regular rate and rhythm Abdomen soft nontender, no organomegaly Moving all four extremities No lower extremity edema Lab WBC 20 Hb 11 MCV 100 Left shift Bicarb 32 Imaging CXR interstitial opacity Assessment and plan Acute on chronic hypoxic respiratory failure COPD group E with exacerbation Complex pneumonia, fungal? cannot rule out ILD pulmonary arterial hypertension chronic pain right heart failure hypothyroidism maintain spo2 >94% resume home meds, sildenafil, obsumit, lasix, paroxetine, levothyroxine albuterol ipatropium nebs c/w ana and fluconazole sputum culture high res chest CT reviewed for bronch wednesday resume pain management, CURES reviewed bx and culture sent s/p bronchoscopy Replete electrolytes Diet regular DVT prophylaxis ambulatory Plan discussed with: Patient My Orders Orders - MARY KELLY MD Procedure Category Date Status Time Respiratory Culture RASHID 1824 In Process W/ Gs 11:05 Viral Culture RASHID 121824 In Process 11:05 Respiratory Culture RASHID 1218/24 In Process W/ Gs 11:05 Viral Culture RASHID 1218/24 In Process 11:05 Fungus Culture With RASHID 24 In Process Stain 11:05 Date of Service: Sep 27, 2024 Billing Provider: MARY KELLY MD Common Visit Codes: [id number] INP/OBS CARE(HIGH) MARY KELLY MD Sep 27, 2024 15:27
--- NOTE | 2024-09-27 22:53 | DVHPN2 ---
Progress Note - Dictate Date Seen: Sep 27, 2024 Medical Necessity Reason Pt with a Central, PICC or Fol: No Subjective Patient seen and examined at bedside. Remains on supplemental oxygen Overnight events reviewed. vital signs Vital Sign Date Time Temp Pulse Resp B/P (MAP) Pulse Ox O2 Delivery O2 Flow Rate FiO2 09/27/24 21:00 98.0 63 20 138/63 (88) 95 98.0 09/27/24 20:00 Nasal Cannula* 4 36 Total Intake and Output 09/26/24 09/26/24 09/27/24 15:00 23:00 07:00 Intake Total 200 ml 1800 ml 50 ml Output Total 8 ml 800 ml Balance 200 ml 1792 ml -750 ml medications Current Medications Medications Dose Ordered Sig/Taylor Route Start Time Stop Time Status Last Admin Dose Admin Methylprednisolone Sodium Succinate 40 mg Q8HR IV 09/21/24 22:00 09/27/24 21:58 40 MG Sodium Chloride 1,000 ml @ 60 mls/hr [id number] IV 09/21/24 20:45 09/26/24 09:07 60 MLS/HR Acetaminophen 650 mg Q6HP PRN PO 09/21/24 20:45 Levothyroxine Sodium 88 mcg QAM@0600 PO 09/22/24 06:00 09/27/24 05:38 88 MCG Oxycodone/ Acetaminophen 2 tab Q6HP PRN PO 09/22/24 13:00 09/27/24 17:00 2 TAB Morphine Sulfate 15 mg Q8HR PO 09/22/24 14:00 09/27/24 21:59 15 MG Baclofen 10 mg Q8HR PO 09/22/24 14:00 09/27/24 21:59 10 MG Pregabalin 100 mg TID PO 09/22/24 14:00 09/27/24 21:59 100 MG Paroxetine HCl 40 mg DAILY PO 09/23/24 10:00 09/26/24 12:10 40 MG Hydroxyzine Pamoate 50 mg Q6HP PRN PO 09/22/24 13:15 Montelukast Sodium 10 mg HS PO 09/22/24 22:00 09/27/24 21:59 10 MG Pantoprazole Sodium 40 mg DAILY@0600 PO 09/23/24 06:00 09/27/24 05:38 40 MG Sildenafil Citrate 20 mg TID@08,14,20 PO 09/22/24 14:00 09/27/24 19:38 20 MG Furosemide 40 mg DAILY PO 09/23/24 10:00 09/27/24 13:46 40 MG Patient Own Medication 1 DAILY PO 09/23/24 10:00 09/27/24 13:48 1 Hydroxychloroquine Sulfate 200 mg DAILY PO 09/23/24 10:00 09/27/24 13:45 200 MG Patient Own Medication 1 DAILY PO 09/23/24 10:00 09/27/24 13:49 1 Aspirin 81 mg DAILY PO 09/23/24 10:00 09/27/24 13:45 81 MG Paroxetine HCl 10 mg DAILY PO 09/23/24 10:00 09/26/24 12:10 10 MG Fluconazole 100 ml @ 100 mls/hr 10,11 IV 09/23/24 10:00 09/27/24 16:44 100 MLS/HR Patient Own Medication 1 g BID IV 09/22/24 22:00 UNV Loratadine 10 mg Q6HP PRN PO 09/23/24 00:00 09/23/24 01:24 10 MG Meropenem 50 ml @ 17 mls/hr Q8HR IV 09/26/24 15:17 09/27/24 21:58 17 MLS/HR objective Gen.: Patient lying in bed in no apparent distress. On supplemental oxygen. Head: Normocephalic, atraumatic. Eyes: EOMI/PERRLA. Ears: Normal hearing. Normal anatomy. Neck/trachea: Trachea midline, supple. Nose: Normal external anatomy. Mouth: Moist mucous membranes. Chest: Decreased air entry bilaterally. No wheezing or rhonchi. Cardiovascular: Positive S1, positive S2. Regular rate and rhythm. Abdomen: Positive bowel sounds in all 4 quadrants. Soft, non-tender, non- distended. : Deferred. Rectal: Deferred. Skin: Warm, dry. Intact. Extremities: 2+ radial pulses bilaterally. No lower extremity edema. Neuro: Awake, alert, oriented x3. No gross motor or sensory deficits. Cranial nerves II through XII intact. Gait not assessed. laboratory and microbiology Laboratory Tests 09/26/24 04:48 09/25/24 05:01 Test 09/26/24 04:48 Range/Units Serum Glucose 140 H 74-106 mg/dL Assessment/Plan Impression: Acute on chronic hypoxic respiratory failure Pulmonary hypertension with acute cor pulmonale Pneumonia Atelectasis Leukocytosis Events: Remains on supplemental oxygen, 5 LPM NC Taper O2 as tolerated Patient is s/p bronchoscopy with BAL, brushings and biopsy. Copious mucous plugging was noted in R4 - R10. RML BAL, brushings and biopsy Left lung washings sent for cultures. RML BAL sent for AFB, fungal and respiratory cultures - rule out MAC. Chest x-ray demonstrates multifocal bilateral consolidative opacities. No effusion or pneumothorax. Continue antibiotics Continue bronchodilators Continue pulmonary hypertension meds. Incentive spirometry Monitor blood pressures. Labs and imaging reviewed. Rest of plan as noted below. Plan: Supplemental oxygen keep O2 saturations above 92%. Continue antibiotics and antifungals. Follow up cultures. Blood cultures no growth x5 days. IV steroids Taper as tolerated Continue Singulair p.o. q.h.s.. Continue sildenafil p.o. t.i.d. for pulmonary hypertension. Resume pts home medication Opsumit. She will bring in other home medications. F/u Echo report GI prophylaxis with Protonix Prognosis: Poor given multiple comorbidities. Rest of plan per hospitalist and other consultants. Thank you Dr. Mcdonough for allowing me to participate in this patient's care. Further recommendations will depend on patient's clinical course. Please do not hesitate to contact me if you have any questions or concerns. This medical document was created using an electronic medical record system with [id number] dictation system. Although this document has been carefully reviewed, there may still be some phonetic and typographical errors. These areas are purely typographical due to imperfections of the software programs, and do not reflect any compromise in the patient's medical care. Dietary Evaluation Review Comments: 1) Consider a 2gm Sodium diet 2) Continue current plan of care Expected Outcomes/Goals: F/U in 3-5 days Plan discussed with: Patient, Other (RN) EMRE TRAMMELL MD Sep 27, 2024 22:53
[2024-09-28 01:00] VITALS: BP 136/55; PULSE 51; RESP 20; TEMP 97.8; O2SAT 96
[2024-09-28 05:00] VITALS: BP_SYST 136; BP_SYST 166; BP_DIAS 66; BP_DIAS 73; PULSE 53; PULSE 64; RESP 20; TEMP 97.6; O2SAT 95
[2024-09-28 09:00] VITALS: BP 151/64; PULSE 50; RESP 14; TEMP 97.3; O2SAT 98
--- NOTE | 2024-09-28 09:16 | DVHPN2 ---
Progress Note - Dictate Date Seen: Sep 28, 2024 Medical Necessity Reason Pt with a Central, PICC or Fol: No Subjective PT WITH SOB CXR SHOWS RIGHT LOWER LOBE INFILTRATE VS FIBROSIS HX OF PAH HYPOTHYROIDISM PT HAS UNDER GONE 3 ROUNDS OF ABX WITH INHALERS AND STEROID vital signs Vital Sign Date Time Temp Pulse Resp B/P (MAP) Pulse Ox O2 Delivery O2 Flow Rate FiO2 09/28/24 08:41 134/65 09/28/24 05:00 97.6 53 20 95 97.6 09/27/24 20:00 Nasal Cannula* 4 36 Total Intake and Output 09/27/24 09/27/24 09/28/24 15:00 23:00 07:00 Intake Total 10 ml 850 ml Output Total 900 ml Balance 10 ml -50 ml medications Current Medications Medications Dose Ordered Sig/Taylor Route Start Time Stop Time Status Last Admin Dose Admin Methylprednisolone Sodium Succinate 40 mg Q8HR IV 09/21/24 22:00 09/28/24 05:22 40 MG Sodium Chloride 1,000 ml @ 60 mls/hr [id number] IV 09/21/24 20:45 09/28/24 03:10 60 MLS/HR Acetaminophen 650 mg Q6HP PRN PO 09/21/24 20:45 Levothyroxine Sodium 88 mcg QAM@0600 PO 09/22/24 06:00 09/28/24 05:23 88 MCG Oxycodone/ Acetaminophen 2 tab Q6HP PRN PO 09/22/24 13:00 09/28/24 05:24 2 TAB Morphine Sulfate 15 mg Q8HR PO 09/22/24 14:00 09/28/24 05:23 15 MG Baclofen 10 mg Q8HR PO 09/22/24 14:00 09/28/24 05:23 10 MG Pregabalin 100 mg TID PO 09/22/24 14:00 09/28/24 05:23 100 MG Paroxetine HCl 40 mg DAILY PO 09/23/24 10:00 09/26/24 12:10 40 MG Hydroxyzine Pamoate 50 mg Q6HP PRN PO 09/22/24 13:15 Montelukast Sodium 10 mg HS PO 09/22/24 22:00 09/27/24 21:59 10 MG Pantoprazole Sodium 40 mg DAILY@0600 PO 09/23/24 06:00 09/28/24 05:24 40 MG Sildenafil Citrate 20 mg TID@08,14,20 PO 09/22/24 14:00 09/28/24 08:42 20 MG Furosemide 40 mg DAILY PO 09/23/24 10:00 09/28/24 08:41 40 MG Patient Own Medication 1 DAILY PO 09/23/24 10:00 09/27/24 13:48 1 Hydroxychloroquine Sulfate 200 mg DAILY PO 09/23/24 10:00 09/28/24 08:42 200 MG Patient Own Medication 1 DAILY PO 09/23/24 10:00 09/27/24 13:49 1 Aspirin 81 mg DAILY PO 09/23/24 10:00 09/28/24 08:43 81 MG Paroxetine HCl 10 mg DAILY PO 09/23/24 10:00 09/26/24 12:10 10 MG Fluconazole 100 ml @ 100 mls/hr 10,11 IV 09/23/24 10:00 09/27/24 16:44 100 MLS/HR Patient Own Medication 1 g BID IV 09/22/24 22:00 UNV Loratadine 10 mg Q6HP PRN PO 09/23/24 00:00 09/23/24 01:24 10 MG Meropenem 50 ml @ 17 mls/hr Q8HR IV 09/26/24 15:17 09/28/24 05:22 17 MLS/HR laboratory and microbiology Laboratory Tests 09/26/24 04:48 09/25/24 05:01 Test 09/26/24 04:48 Range/Units Serum Glucose 140 H 74-106 mg/dL Problem List RIGHT LOWER LOBE INFILTRATE VS FIBROSIS HX OF PAH HYPOTHYROIDISM PT HAS UNDER GONE 3 ROUNDS OF ABX WITH INHALERS AND STEROID LEUKOCYTOSIS Assessment/Plan INHALERS BROAD SPECTRUM ABX DC LEVAQUIN PT HAS BEEN TREATED WITH LEVAQUIN AND WITH DOXYCYCLINE MEROPENAM AND DIFLUCAN CONSIDER BRONCHOSCOPY WITH BIOPSY [UL CONSULT PENDING CXR STILL WITH CONSOLIDATION WITH INFLAMMATORY CHANGES WBC NOW BACK TO BASELINE BRONCHOSCOPY S/P BRONCHOSCOPY Left lower lobe atelectasis due to mucous plugging Left lung mucosal petechiae Mucous plugging from R4-R10 Right Middle Lobe (RML) lateral segment BAL performed RML lateral segment Brushings RML segment Biopsy Dietary Evaluation Review Comments: 1) Consider a 2gm Sodium diet 2) Continue current plan of care Expected Outcomes/Goals: F/U in 3-5 days Plan discussed with: Patient ANALY CORTEZ MD Sep 28, 2024 09:16
[2024-09-28 10:00] VITALS: O2SAT 98
[2024-09-28 12:39] VITALS: BP 142/56; PULSE 49; RESP 16; TEMP 97.9; O2SAT 97
[2024-09-28] MEDS ORDERED: AUG875T PO (12:47)
[2024-09-28] MEDS ORDERED: DOXY-286 PO (12:47)
--- NOTE | 2024-09-28 12:51 | DVHDS2 ---
Discharge Summary Date of Admission Sep 21, 2024 at 22:15 Date of Discharge: Sep 28, 2024 Labs/Diagnostic Data: Laboratory Results Test 09/26/24 19:33 09/26/24 04:48 09/25/24 05:01 09/22/24 07:18 Prothrombin Time 10.4 sec (9.3-11.8) Prothrombin Time INR 0.98 (0.9-1.15) Activated Partial Thromboplast Time 22.1 SEC (24.5-34.5) Sodium Level 144 mmol/L (136-145) Potassium Level 4.0 mmol/L (3.5-5.1) Chloride Level 103 mmol/L (98-107) Carbon Dioxide Level 36 mmol/L (20-31) Anion Gap 5 (5-15) Blood Urea Nitrogen 17 mg/dL (9-23) Creatinine 0.60 mg/dL (0.550-1.02) Glomerular Filtration Rate Calc 101 mL/min (>90) BUN/Creatinine Ratio 28.3 (10.0-20.0) Serum Glucose 140 mg/dL (74-106) Calcium Level 9.7 mg/dL (8.7-10.4) Total Bilirubin 0.3 mg/dL (0.2-1.0) Aspartate Amino Transferase (AST) 33 U/L (13-40) Alanine Aminotransferase (ALT) 53 U/L (7-40) Alkaline Phosphatase 57 U/L (46-116) Total Protein 5.7 g/dL (5.7-8.2) Albumin 3.8 g/dL (3.2-4.8) White Blood Count 8.1 10^3/uL (4.4-10.8) Red Blood Count 3.10 10^6/uL (4.0-5.20) Hemoglobin 10.5 g/dL (12.2-16.2) Hematocrit 31.0 % (36.0-46.0) Mean Corpuscular Volume 100.2 fL (80.0-100.0) Mean Corpuscular Hemoglobin 33.9 pg (28.0-32.0) Mean Corpuscular Hemoglobin Concent 33.9 g/dL (32.0-36.0) Red Cell Distribution Width 13.9 % (11.8-14.3) Platelet Count 223 10^3/uL (140-450) Mean Platelet Volume 7.0 fL (6.9-10.8) Neutrophils (%) (Auto) 90.3 % (37.0-80.0) Lymphocytes (%) (Auto) 5.0 % (10.0-50.0) Monocytes (%) (Auto) 4.6 % (0.0-12.0) Eosinophils (%) (Auto) 0.0 % (0.0-7.0) Basophils (%) (Auto) 0.1 % (0.0-2.0) Neutrophils # (Auto) 7.3 10 ^3/uL (1.6-8.6) Lymphocytes # (Auto) 0.4 10 ^3/uL (0.4-5.4) Monocytes # (Auto) 0.4 10 ^3/uL (0-1.3) Eosinophils # (Auto) 0 10 ^3/uL (0-0.8) Basophils # (Auto) 0 10 ^3/uL (0-0.2) Nucleated Red Blood Cells 0.1 % Differential Total Cells Counted 100.0 (100) Neutrophils % (Manual) 57 (37.0-80.0) Band Neutrophils % (Manual) 37 Lymphocytes % (Manual) 3 (10.0-50.0) Monocytes % (Manual) 3 (0-12) Eosinophils % (Manual) 0 (0-7) Basophils % (Manual) 0 (0.0-2.0) Metamyelocytes % (manual) 0 Myelocytes % (Manual) 0 Promyelocytes % (Manual) 0 Blast Cells % (Manual) 0 Reactive Lymphocytes 0 Platelet Estimate Adequate Macrocytosis Slight Test 09/21/24 20:30 09/21/24 20:00 09/21/24 19:15 09/21/24 17:00 Influenza Type A Antigen Negative (Negative) Influenza Type B Antigen Negative (Negative) SARS-CoV-2 Antigen (Rapid) Negative (NEGATIVE) Troponin I High Sensitivity 7 ng/L (</=34) Thyroid Stimulating Hormone (TSH) 1.84 uIU/mL (0.55-4.78) Urine Color Light-yellow (Yellow) Urine Clarity Clear (Clear) Urine pH 7.5 (5.0-9.0) Urine Specific [place] 1.008 (1.001-1.035) Urine Protein Negative (Negative) Urine Ketones Negative (Negative) Urine Blood Negative /uL (Negative) Urine Nitrite Negative (Negative) Urine Bilirubin Negative (Negative) Urine Urobilinogen Normal mg/dL (Negative) Urine Leukocyte Esterase Negative /uL (Negative) Urine RBC 4 /hpf (0 - 4) Urine WBC 2 /hpf (0 - 5) Urine Squamous Epithelial Cells Few /hpf (<5) Urine Amorphous Crystals Few /hpf (None Seen) Urine Bacteria None seen /hpf (None Seen) Urine Glucose Normal mg/dL (Normal) Urine Opiates Screen Pos (NEGATIVE) Urine Fentanyl Screen Neg (NEGATIVE) Urine Barbiturates Screen Neg (NEGATIVE) Urine Phencyclidine Screen Neg (NEGATIVE) Urine Amphetamines Screen Neg (NEGATIVE) Urine Benzodiazepines Screen Neg (NEGATIVE) Urine Cocaine Screen Neg (NEGATIVE) Urine Cannabinoids Screen Neg (NEGATIVE) Lactic Acid Level 1.6 mmol/L (0.4-2.0) B-Type Natriuretic Peptide 152.55 pg/mL (0-100) Other Laboratory Tests 09/26/24 04:48 09/25/24 05:01 Brief Hx & Hospital Course: 64 F admitted for acute on chronic hypoxic RF, pt had PH, consulted cardio and pulm, covered with ana and fluconazole, s/p BAL with PAULA negative, will discharge with augmentin doxy, o2 recs back to baseline Condition at Discharge: Good Final Diagnosis/Problems List acute on chronic hypoxic respiratory failure Discharge Disposition: Home Discharge Instruct/Medications Diet: See Comment Activity: No Restrictions, As Tolerated Follow Up/Referral: pulmonary PCP (dr keen) Medications: augmentin and doxy for 10 days 36 Discharge Statement: "Patient was advised to return to the ER or call 911 if any headaches, dizziness, shortness of breath, chest pain, abdominal pain, bleeding, fevers, or worsening of medical condition. Patient was counseled about treatment plan, medications, possible side effects, patientverbalized understanding. All questions were answered to the best of my ability. This discharge took greater then 30 minutes in planning, reviewing documentation, counseling the patient, and discussing with other team members." ASSESSMENT ASSESSMENT Assessment Acute on chronic hypoxic respiratory failure COPD group E with exacerbation Complex pneumonia, fungal? cannot rule out ILD pulmonary arterial hypertension chronic pain right heart failure hypothyroidism s/p bronch with bal and brushing Date of Service: Sep 28, 2024 Billing Provider: MARY KELLY MD Common Visit Codes: [id number]/[id number] DISCH DAY >30min MARY KELLY MD Sep 28, 2024 12:51
[2024-09-28 13:56] VITALS: BP 134/65; TEMP 36.6
--- NOTE | 2024-09-28 23:13 | DVHPN2 ---
Progress Note - Dictate Date Seen: Sep 28, 2024 Medical Necessity Reason Pt with a Central, PICC or Fol: No Subjective Patient seen and examined at bedside. Remains on supplemental oxygen Overnight events reviewed. vital signs Vital Sign Date Time Temp Pulse Resp B/P (MAP) Pulse Ox O2 Delivery O2 Flow Rate FiO2 09/28/24 13:56 36.6 09/28/24 12:39 49 16 142/56 (84) 97 09/28/24 10:00 Nasal Cannula 4.0 09/28/24 10:00 36 Total Intake and Output 09/27/24 09/27/24 09/28/24 15:00 23:00 07:00 Intake Total 10 ml 850 ml Output Total 900 ml Balance 10 ml -50 ml medications Current Medications Medications Dose Ordered Sig/Taylor Route Start Time Stop Time Status Last Admin Dose Admin Patient Own Medication 1 g BID IV 09/22/24 22:00 UNV objective Gen.: Patient lying in bed in no apparent distress. On supplemental oxygen. Head: Normocephalic, atraumatic. Eyes: EOMI/PERRLA. Ears: Normal hearing. Normal anatomy. Neck/trachea: Trachea midline, supple. Nose: Normal external anatomy. Mouth: Moist mucous membranes. Chest: Decreased air entry bilaterally. No wheezing or rhonchi. Cardiovascular: Positive S1, positive S2. Regular rate and rhythm. Abdomen: Positive bowel sounds in all 4 quadrants. Soft, non-tender, non- distended. : Deferred. Rectal: Deferred. Skin: Warm, dry. Intact. Extremities: 2+ radial pulses bilaterally. No lower extremity edema. Neuro: Awake, alert, oriented x3. No gross motor or sensory deficits. Cranial nerves II through XII intact. Gait not assessed. laboratory and microbiology Laboratory Tests 09/26/24 04:48 09/25/24 05:01 Test 09/26/24 04:48 Range/Units Serum Glucose 140 H 74-106 mg/dL Assessment/Plan Impression: Acute on chronic hypoxic respiratory failure Pulmonary hypertension with acute cor pulmonale Pneumonia Atelectasis Leukocytosis Events: Remains on supplemental oxygen, 5 LPM NC Taper O2 as tolerated Continue pulmonary hypertension meds. Incentive spirometry Patient is stable for discharge from the pulmonary standpoint. Follow up in 1-[address]. 09/27/24 - Patient is s/p bronchoscopy with BAL, brushings and biopsy. Copious mucous plugging was noted in R4 - R10. RML BAL, brushings and biopsy Left lung washings sent for cultures. RML BAL sent for AFB, fungal and respiratory cultures - rule out MAC. Labs and imaging reviewed. Rest of plan as noted below. Plan: Supplemental oxygen keep O2 saturations above 92%. Antibiotics and antifungals. Follow up cultures. Blood cultures no growth x5 days. IV steroids Taper as tolerated Continue Singulair p.o. q.h.s.. Continue sildenafil p.o. t.i.d. for pulmonary hypertension. Resume pts home medication Opsumit. She will bring in other home medications. F/u Echo report GI prophylaxis with Protonix Prognosis: Poor given multiple comorbidities. Rest of plan per hospitalist and other consultants. Thank you Dr. Mcdonough for allowing me to participate in this patient's care. Further recommendations will depend on patient's clinical course. Please do not hesitate to contact me if you have any questions or concerns. This medical document was created using an electronic medical record system with [employer] dictation system. Although this document has been carefully reviewed, there may still be some phonetic and typographical errors. These areas are purely typographical due to imperfections of the software programs, and do not reflect any compromise in the patient's medical care. Dietary Evaluation Review Comments: 1) Consider a 2gm Sodium diet 2) Continue current plan of care Expected Outcomes/Goals: F/U in 3-5 days Plan discussed with: Patient, Other (REGINALD Lamb) EMRE TRAMMELL MD Sep 28, 2024 23:13
== END 2024-09-28 14:45 | disposition home or self-care (01) | DRG 193 ==
LOC: ER 16:26 → TELE 22:15 → TELE-WESTW 22:16 → WEST WING 09-24 18:02
PROVIDERS: ADMIT Nurse Practitioner Family; ATTEND Student in an Organized Health Care Education/Training Program
PROC: 0B9D8ZX Drainage of Right Middle Lung Lobe, Via Natural or Artificial Opening Endoscopic, Diagnostic (ICD-10-PCS; principal; 2024-09-27 10:36)
DX: J16.8 Pneumonia due to other specified infectious organisms (principal); J96.21 Acute and chronic respiratory failure with hypoxia; J98.11 Atelectasis; J44.1 Chronic obstructive pulmonary disease with (acute) exacerbation; J44.0 Chronic obstructive pulmonary disease with (acute) lower respiratory infection; I27.21 Secondary pulmonary arterial hypertension; I50.810 Right heart failure, unspecified; G89.29 Other chronic pain; T38.0X5A Adverse effect of glucocorticoids and synthetic analogues, initial encounter; F17.210 Nicotine dependence, cigarettes, uncomplicated; E03.9 Hypothyroidism, unspecified; D72.828 Other elevated white blood cell count; Z20.822 Contact with and (suspected) exposure to COVID-19; I11.0 Hypertensive heart disease with heart failure; I27.81 Cor pulmonale (chronic); T17.998A Other foreign object in respiratory tract, part unspecified causing other injury, initial encounter; W44.F9XA Other object of natural or organic material, entering into or through a natural orifice, initial encounter; Z98.84 Bariatric surgery status; Z90.710 Acquired absence of both cervix and uterus; Z82.49 Family history of ischemic heart disease and other diseases of the circulatory system
CPT/HCPCS: 31625; 36415; 71045; 71046; 71250; 80048; 80053; 80307; 81001; 83605; 83880; 84443; 84484; 85007; 85025; 85027; 85610; 85730; 86850; 86900; 86901; 87040; 87070; 87077; 87186; 87205; 87426; 87804; 93005; 94640; 99291; G0378; J0171; J1450; J2185; J2250; J3490